=== PATIENT | female | born 1970 | race Caucasian/White ===

== ENCOUNTER → 2018-08-18 11:01 | Outpatient (CLI) | payer OTHER, MEDICAID, SELFPAY ==
[2018-08-18 12:25] LABS: Add Manual Diff / Slide Review NO; Basophils Percent Auto 0.7 % (0-2); Eosinophils Percent Auto 3.2 % (2-4); Hematocrit 37.6 % (36-46); Lymphocytes Percent Auto 26.4 % (25-40); Mean Corpuscular HGB Conc 34.7 % (30-36); Mean Corpuscular Hemoglobin 27.8 PG (26-34); Monocytes Percent Auto 7.3 % (3-14); Neutrophils Absolute Auto 4200 /uL (3000-5900); Neutrophils Percent Auto 62.4 % (50-75); Platelet Count 308 X10^3/uL (150-400); Red Blood Cell Count 4.69 X10^6/uL (4.0-5.2); Red Cell Distribution Width 14.3 % (11.6-14.8); White Blood Cell Count 6.8 X10^3/uL (4.5-11.0)
[2018-08-18 13:14] LABS: Alanine Aminotransferase 22 IU/L (9-52); Albumin 3.7 g/dL (3.5-5.0); Albumin Globulin Ratio 1.2 (1.0-2.8); Alkaline Phosphatase 68 U/L (38-126); Aspartate Aminotransferase 25 IU/L (14-36); BUN Creatinine Ratio 13.3 (6-22); Bilirubin Total 0.7 mg/dL (0.2-1.3); Blood Urea Nitrogen 12 mg/dL (7-17); Calcium 9.1 mg/dL (8.4-10.2); Carbon Dioxide 25 mmol/L (22-32); Chloride 103 mmol/L (98-107); Estimated Glomerular Filt Rate > 60.0 mL/min (>60); Globulin 3.1 g/dL (1.7-4.1); Glucose 105 mg/dL (70-100); HEMOLYSIS < 15 (0-50); Potassium 4.1 mmol/L (3.4-5.1); Sodium 140 mmol/L (137-145); Total Protein 6.8 g/dL (6.3-8.2)
[2018-08-18 16:02] LABS: Hepatitis B Surface Antigen NEGATIVE s/c (NEGATIVE)
[2018-08-18 16:19] LABS: Hep C Virus Ab w/Reflex Quant NEGATIVE s/c (NEGATIVE)
[2018-08-20 16:31] LABS: Hepatitis A Ab Total Nonreactive (Nonreactive); Hepatitis B Core IgM Nonreactive (Nonreactive)
[2018-08-21 08:35] LABS: Hepatitis B Surf Ab Qualitativ Nonreactive (Nonreactive)
[2018-08-25 10:24] LABS: Rapid Plasma Reagin NON-REACTIVE
== END ==
PROVIDERS: PCP Family Medicine; Visit Provider Family Medicine
DX: Z11.3 Encounter for screening for infections with a predominantly sexual mode of transmission (principal); Z13.228 Encounter for screening for other metabolic disorders
CPT/HCPCS: 36415; 80053; 85025; 86592; 86705; 86706; 86803; 87340

== ENCOUNTER 2020-08-29 19:24 | Emergency (ER) | payer OTHER, MEDICAID, SELFPAY ==
[2020-08-29 19:40] VITALS: BP 175/11; PULSE 78; RESP 19; TEMP 36.6; O2SAT 100; BMI 34.2
--- NOTE | 2020-08-29 19:43 | DI.RAD.S_ITS ---
PROCEDURE: XR KNEE RT 3V INDICATIONS: felt pop in knee, now increased pain in right knee TECHNIQUE: Three views of the knee were acquired. COMPARISON: None. FINDINGS: Bones: No fractures or dislocations. Enthesopathy at the distal quadriceps tendon insertion on the patella. No suspicious bony lesions. Mild spurring in the patellofemoral compartment. Soft tissues: Moderate-sized joint effusion. No suspicious soft tissue calcifications. IMPRESSION: 1. Moderate-sized joint effusion suggest internal derangement. 2. Mild patellofemoral compartment degeneration. Dictated by: Edith Rodriguez M.D. on 08/29/2020 at 20:48 Approved by: Edith Rodriguez M.D. on 08/29/2020 at 20:49
--- NOTE | 2020-08-29 21:20 | PC.NURSE ---
Took 400mg Ibuprofen at 1530. Ice pack applied.
--- NOTE | 2020-08-29 22:00 | DI.CT.S_ITS ---
PROCEDURE: CT LE RT WO CON INDICATIONS: pain/injury TECHNIQUE: Noncontrast 1-1.5 mm axial sections acquired from the mid-patella to the proximal tibia, with coronal and sagittal reformats. COMPARISON: [facility], CR, XR KNEE RT 3V, 08/29/2020, 19:32. FINDINGS: Image quality: Excellent. Bones: Within the distal femoral marrow space there is a structure that shows rounded and curvilinear internal small calcifications measuring up to 2.9 cm craniocaudad and 2.7 x 2.3 cm in maximal AP and transverse dimensions. 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 A small area of vascular groove is seen adjacent to this structure, which does not represent an osteolytic lesion by appearance. Soft tissues: Small to moderate joint effusion, superimposed [id number] degenerative osteoarthritis. IMPRESSION: In the setting of reported trauma or sensation of possible ligament injury the presence of a joint effusion is a worrisome finding, and likely indicates some form of internal derangement. Knee MRI likely is warranted for this finding, and also likely is warranted for establishing baseline for follow-up of a 2.9 cm maximal dimension chondroid matrix tumor within the medullary space of the distal femur, not effectively visualized by plain film. 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 However, low-grade chondrosarcoma could produce this appearance. Note: These findings are concordant with the preliminary interpretation. Dictated by: Jarvis Josue M.D. on 08/30/2020 at 8:14 Approved by: Jarvis Josue M.D. on 08/30/2020 at 8:21
--- NOTE | 2020-08-29 22:01 | ED.LOWEXIN ---
HPI - Extremity Injury (Lower) General Chief Complaint: Extremity Injury, Lower Stated Complaint: right knee pain, heard a pop Time Seen by Provider: 08/29/20 21:51 Source: patient Mode of arrival: Ambulatory Limitations: no limitations History of Present Illness HPI Narrative: Patient tracing her puppy 3 3 this afternoon 7 hours ago and felt a pop in the right knee. One and half weeks ago she fell on her right knee tripping on a pillow at home. Pain since then and worsened today with chasing the puppy. No numbness tingling or weakness. No previous knee injury or surgeries. No numbness tingling weakness. Able to fully flex to 90? and extend fully as well. Boyfriend at bedside and is driving complaint: knee injury Related Data Previous Rx's Medication Instructions Recorded hydrocodone-acetaminophen 1 tab PO Q6H PRN #7 tab 08/29/20 ondansetron 4 mg PO Q8H PRN #10 tab 08/29/20 Allergies Allergy/AdvReac Type Severity Reaction Status Date / Time No Known Drug Allergies Allergy Verified 08/29/20 19:40 Review of Systems Review of Systems Narrative: GENERAL: Denies chills, fatigue, malaise, fever, sweats. MUSCULOSKELETAL: Complains joint pain, or bony pain SKIN: Denies rash, skin lesions NEUROLOGIC: Denies weakness, no numbness tingling PSYCHIATRIC: No concerning psychosocial issues. ROS Unobtainable: All systems reviewed & are unremarkable except as noted in HPI and below Patient History Social History Smoking Status: Current every day smoker Smoking Status: Current every day smoker Substance Use Type: marijuana Exam Narrative Exam Narrative: GENERAL: patient appears stated age. Well-nourished, well-developed patient, in no distress, not toxic HEAD: Atraumatic. Normocephalic. CARDIOVASCULAR: Regular rate and rhythm without murmurs, gallops, or rubs. RESPIRATORY: Clear to auscultation. Breath sounds equal bilaterally. No wheezes, rales, or rhonchi. EXTREMITIES: Examination right lower extremity need to toes exposed. Leg and foot warm soft and pink with strong pedal pulse with light touch intact to foot and toes. Nontender ankle. Mild diffuse tenderness and edema at the anterior right knee. Able to fully extend and able to flex to 90? actively. There is no laxity but does have pain of the right knee on anterior posterior medial and lateral and rotational stress of the right leg. NEURO: AOx4. SKIN: No rash or erythema of visible areas PSYCH: Not anxious, is cooperative Initial Vital Signs Initial Vital Signs: Vital Signs Temperature 97.8 F 08/29/20 19:40 Pulse Rate 78 08/29/20 19:40 Respiratory Rate 19 08/29/20 19:40 Blood Pressure 175/11 H 08/29/20 19:40 Pulse Oximetry 100 08/29/20 19:40 Course Orders Ordered: ED Orders 08/29/20 19:43 XR knee RT 3V Stat 08/29/20 22:00 CT LE RT wo con Stat Discontinued Medications Hydromorphone HCl (Dilaudid) 1 mg IM NOW ONE Stop: 08/29/20 21:59 Last Admin: 08/29/20 22:38 Dose: 1 mg Documented by: JOSELITO Ondansetron HCl (Zofran Odt) 4 mg SL NOW ONE Stop: 08/29/20 21:59 Last Admin: 08/29/20 22:37 Dose: 4 mg Documented by: JOSELITO Reevaluation(s) Reevaluation #1: Patient states pain much better and desires discharge home. Reviewed imaging results with patient and boyfriend. Time: 23:38 Vital Signs Vital signs: Vital Signs - 8 hr 08/29/20 19:40 08/29/20 23:54 Temperature 97.8 F Pulse Rate 78 79 Respiratory Rate 19 14 Blood Pressure 175/11 H 146/94 H Pulse Oximetry 100 100 MDM - Extremity Injury (Lower) Differential Diagnosis Differential diagnosis: Likely acute internal derangement of knee Imaging Data X-ray right knee: Radiologist's Impression: [address] [address] XRay Report Signed Patient: Joceline Lemus LMR#: [id number] : 1970Acct:[id number] Age/Sex: 50 / FDate of Service: 08/29/20 Loc: ED Accession Number: [id number] Procedure: XR knee RT 3V Ordering Provider: Mio Cavanaugh MD PROCEDURE: XR KNEE RT 3V INDICATIONS: felt pop in knee, now increased pain in right knee TECHNIQUE: Three views of the knee were acquired. COMPARISON: None. FINDINGS: Bones: No fractures or dislocations. Enthesopathy at the distal quadriceps tendon insertion on the patella. No suspicious bony lesions. Mild spurring in the patellofemoral compartment. Soft tissues: Moderate-sized joint effusion. No suspicious soft tissue calcifications. IMPRESSION: 1. Moderate-sized joint effusion suggest internal derangement. 2. Mild patellofemoral compartment degeneration. Dictated by: Edith Rodriguez M.D. on 08/29/2020 at 20:48 Approved by: Edith Rodriguez M.D. on 08/29/2020 at 20:49 CT scan right knee without contrast: Radiologist's Impression: No acute osseous process. Small suprapatellar joint effusion. MDM Narrative Medical decision making narrative: Appropriate for discharge home and follow-up. Will need outpatient MRI Discharge Plan Departure Patient Disposition: Home Clinical Impression: Right knee sprain Qualifiers: Encounter type: initial encounter Involved ligament of knee: unspecified ligament Qualified Code(s): S83.91XA - Sprain of unspecified site of right knee, initial encounter Discharge Date/Time: 08/29/20 23:55 Instructions: How to Use Crutches, DI for Knee Sprain Activity Restrictions/Additional Instructions: No driving or operating machinery until evaluated by Orthopedics. Use crutches and knee immobilizer when ambulating. Called provided orthopedic office in the morning for office recheck next week. May need to scheduled for outpatient MRI of your knee. Return if worse or if any questions or concerns. Prescriptions: New hydrocodone-acetaminophen 5-325 mg tablet 1 tab PO Q6H PRN (Reason: pain) Qty: 7 RF: 0 ondansetron 4 mg tablet,disintegrating 4 mg PO Q8H PRN (Reason: nausea and vomiting) Qty: 10 RF: 0 Referrals: Bryce Hatch MD [Physician] - Taras Crews MD [Primary Care Provider] -
[2020-08-29] MEDS: ONDANSETRON 4 MG ODT SL (22:37)
[2020-08-29] MEDS: HYDROMORPHONE 1 MG INJ IM (22:38)
[2020-08-29 23:54] VITALS: BP 146/94; PULSE 79; RESP 14; O2SAT 100
== END 2020-08-29 23:55 | disposition home or self-care (01) ==
PROVIDERS: Emergency Provider Emergency Medicine; PCP Family Medicine
DX: S83.91XA Sprain of unspecified site of right knee, initial encounter (principal)
CPT/HCPCS: 73562; 73700; 96372; 99284; J1170

== ENCOUNTER → 2020-09-23 12:28 | Outpatient (CLI) | payer OTHER, MEDICAID, SELFPAY ==
--- NOTE | 2020-09-23 | DI.MRI.S_ITS ---
PROCEDURE: MR LUMBAR SPINE WO CON INDICATIONS: Spondylolisthesis derangement. Low back pain TECHNIQUE: Noncontrast sagittal T1 spin echo and T2 fast echo, sagittal STIR, axial T1 and T2 fast spin echo through the lumbar spine. In cases with scoliosis, additional coronal T2 fast spin echo may be performed. COMPARISON: [facility] [place], CR, XR LUMBAR SPINE 2 OR 3 VIEWS, 09/12/2020, 13:40. FINDINGS: Image quality: Partially degraded by motion artifact. Alignment and Curvature: 5 lumbar type vertebral bodies are present by plain film. Mild grade 1 retrolisthesis of L1 on L2, L2 on L3, L3 on L4, and L5 on S1. Mild grade 1 anterolisthesis of L4 on L5. Bone Marrow: Marrow is of normal overall signal. No acute vertebral body compression fractures. Mild reactive signal within the endplates adjacent to the T12-L1, L1-L2, L2-L3, L3-L4, L4-L5, and L5-S1 intervertebral discs. Spinal Cord: Conus medullaris terminates at the lower L1 level. Visualized cord demonstrates normal signal and size. Paraspinous Soft Tissues: No paravertebral masses. L1-L2: Moderate disc height loss and desiccation. Mild diffuse disc bulge. Mild facet and ligamentum flavum hypertrophy. Mild canal stenosis. Mild bilateral foraminal stenosis. L2-L3: Moderate disc height loss and desiccation. Mild diffuse disc bulge. Mild facet and ligamentum flavum hypertrophy. Mild epidural lipomatosis. Moderate canal stenosis. Mild bilateral foraminal stenosis. L3-L4: Moderate disc desiccation. Mild disc height loss and diffuse disc bulge. Mild facet and ligamentum flavum hypertrophy. Mild epidural lipomatosis. Mild canal stenosis. Mild bilateral foraminal stenosis. L4-L5: Moderate disc height loss and desiccation. Mild diffuse disc bulge. Moderate bilateral facet and ligamentum flavum hypertrophy. Severe canal stenosis. Moderate subarticular foraminal stenosis bilaterally. L5-S1: Moderate disc height loss and desiccation. Mild diffuse disc bulge with superimposed broad-based left posterolateral protrusion. Mild facet and ligamentum flavum hypertrophy. Moderate canal stenosis. Severe left and mild right foraminal stenosis. Left L5 nerve root compression. IMPRESSION: 1. Multilevel degenerative disc and facet disease, as well as ligamentum flavum hypertrophy and epidural lipomatosis. 2. Multilevel canal stenosis, worst at L4-L5, where there is severe canal stenosis. Moderate canal stenosis at L2-L3 and L5-S1. 3. Multilevel foraminal stenoses, worst at L5-S1 on the left where there is associated intraforaminal nerve root compression. Recommend correlation with clinical symptoms to ascertain relevance of this finding. Dictated by: Rosario Huff M.D. on 09/23/2020 at 14:43 Approved by: Rosario Huff M.D. on 09/23/2020 at 14:46
--- NOTE | 2020-09-23 | DI.MRI.S_ITS ---
PROCEDURE: MR KNEE RT WO CON INDICATIONS: Right knee pain TECHNIQUE: Noncontrast sagittal PD fast spin echo and T2 fast spin echo with fat saturation, sagittal 3-D FLASH with fat saturation; coronal T1 spin echo and PD fast spin echo with fat saturation, and axial PD fast spin echo with fat saturation through the knee. COMPARISON: [facility], CR, XR KNEE RT 3V, 08/29/2020, 19:32. FINDINGS: Image quality: Partially degraded by motion artifact. Menisci: Medial extrusion of the medial meniscus. Moderately displaced radial tearing of the posterior horn medial meniscus at the meniscal root ligament insertion site. The radial tearing of the posterior horn medial meniscus. Amorphous and linear high signal intensity within the medial meniscal body, demonstrating inferior articular surface extension, indicating complex tearing. Lateral meniscus is intact. Cruciate ligaments: The anterior and posterior cruciate ligaments appear intact. Medial structures: The medial collateral ligament appears intact but demonstrates mild surrounding T2 signal elevation. Visualized portions of the pes anserinus tendons appear normal. Small amount of medial bursal fluid. Lateral structures: The lateral collateral ligament demonstrates mild T2 signal elevation at the femoral origin. long and short heads of the biceps femoris tendon appear intact. The popliteus tendon appears normal. Iliotibial band appears normal. Anterior structures: The quadriceps and patellar tendons appear intact. Patellar alignment is normal. No femoral trochlear dysplasia or ventral trochlear prominence. Moderate edema in the central and superolateral infrapatellar fat pad. Bones and cartilage: No bone marrow contusions or fractures. Within the central aspect of the distal femur posteriorly adjacent to the intercondylar notch, there is a well-circumscribed high T2 intensity focus measuring 32 mm, which demonstrates multiple internal punctate low T2 intensity foci. Mild tricompartmental periarticular osteophyte formation. Mild diffuse articular cartilage loss overlies the weight-bearing aspects of the medial femoral condyle and medial tibial plateau. Moderate to severe articular cartilage loss overlies the lateral patellar facet inferiorly. Joint space: There is a moderate knee joint effusion and a moderate Robertson's cyst. Normal appearing synovial plicae are incidentally noted. IMPRESSION: 1. Tricompartmental osteoarthritis with associated articular cartilage loss. 2. Medial meniscal tear. 3. Findings consistent with lateral patellofemoral friction syndrome in the appropriate clinical setting. 4. Knee joint effusion and Roberston's cyst. 5. Medial bursitis. 6. MCL strain. 7. Low-grade partial thickness lateral collateral ligament tear. Dictated by: Rosario Huff M.D. on 09/23/2020 at 14:48 Approved by: Rosario Huff M.D. on 09/23/2020 at 14:51
== END ==
PROVIDERS: Referring Provider Orthopaedic Surgery Orthopaedic Surgery of the Spine; Visit Provider Orthopaedic Surgery Orthopaedic Surgery of the Spine
DX: M43.16 Spondylolisthesis, lumbar region (principal); M23.91 Unspecified internal derangement of right knee; M51.36 Other intervertebral disc degeneration, lumbar region; M51.37 Other intervertebral disc degeneration, lumbosacral region; M48.061 Spinal stenosis, lumbar region without neurogenic claudication; M48.07 Spinal stenosis, lumbosacral region; M17.11 Unilateral primary osteoarthritis, right knee; S83.241A Other tear of medial meniscus, current injury, right knee, initial encounter; S83.411A Sprain of medial collateral ligament of right knee, initial encounter; S83.421A Sprain of lateral collateral ligament of right knee, initial encounter; M25.461 Effusion, right knee; M71.21 Synovial cyst of popliteal space [Baker], right knee; M71.561 Other bursitis, not elsewhere classified, right knee; E88.2 Lipomatosis, not elsewhere classified
CPT/HCPCS: 72148; 73721

== ENCOUNTER → 2020-11-18 17:18 | Outpatient (CLI) | payer OTHER, MEDICAID, SELFPAY ==
--- NOTE | 2020-11-18 17:21 | DI.MRI.S_ITS ---
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 Post-contrast axial, coronal, and sagittal T1 spin echo with fat saturation through the knee. COMPARISON: [facility], CR, XR KNEE RT 3V, 08/29/2020, 19:32. [facility], CR, KNEE 3VW (LT), 11/16/2014, 21:03. [facility], CT, CT LE RT WO CON, 08/29/2020, 22:25. [facility], MR, MR KNEE RT WO CON, 09/23/2020, 13:11. FINDINGS: Image quality: Excellent. No fracture. There is redemonstration of the large T2 hyperintense distal right femoral metaphyseal lesion, which abuts the posterior cortex and measures approximately 3.1 x 2.7 cm in cross-sectional mention on axial image 11/03. There is minimal if any internal enhancement. Mild peripheral enhancement pattern is noted on the sagittal pulse sequence. There is stippled internal appearance of the matrix, with scattered T2 hypointense calcific foci, raising possibility of chondroid matrix. No adjacent marrow edema is seen. However, there is thinning of the posterior cortex of the distal femur. No definite soft tissue component is seen. Additional findings as detailed on the noncontrast MRI knee dated 09/23/20, including large Robertson's cyst. Nonspecific subcentimeter T2 hyperintense foci with peripheral enhancement near the tibial spine could represent additional small chondroid lesions, versus degenerative cysts. IMPRESSION: Redemonstrated T2 hyperintense, minimally enhancing distal right femoral metaphyseal lesion. 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 Especially, if there is clinical history of pain in this area. Recommend clinical correlation and oncologic surgical consultation/management Dictated by: Jonathan Neil M.D. on 11/19/2020 at 9:17 Approved by: Jonathan Neil M.D. on 11/19/2020 at 9:30
== END ==
PROVIDERS: Referring Provider Physician Assistant Medical; Visit Provider Physician Assistant Medical
DX: D16.21 Benign neoplasm of long bones of right lower limb (principal)
CPT/HCPCS: 73723; A9579

== ENCOUNTER → 2021-01-21 18:38 | Outpatient (CLI) | payer OTHER, MEDICAID, SELFPAY ==
[2021-01-21 19:29] LABS: COVID19 -Nasal RAPID Negative (Negative)
== END ==
PROVIDERS: PCP Family Medicine; Visit Provider Physician Assistant
DX: Z20.822 Contact with and (suspected) exposure to COVID-19 (principal)
CPT/HCPCS: 87635

== ENCOUNTER 2021-01-22 13:03 | Day surgery (SDC) | payer OTHER, MEDICAID, SELFPAY ==
[2021-01-22] VITALS (11 sets, daily range): BP systolic 136–165; BP diastolic 66–111; PULSE 71–85; RESP 10–99; TEMP 36.2–36.7; O2SAT 12–100; BMI 34.2
[2021-01-22] MEDS: LACTATED RINGERS 1,000 ML 42 ML IV (13:53)
--- NOTE | 2021-01-22 14:03 | PM.HP.1 ---
History of Present Illness History of Present Illness Date Patient Seen: 01/22/21 Time Patient Seen: 14:03 Chief complaint: RIGHT KNEE ARTHROSCOPY W/MENISECTOMY Narrative: Patient is a 50-year-old female with a longstanding history of right knee pain. Jacquelin is seen in September of 2020 at which time an MRI was ordered which did demonstrate a medial meniscus tear but she also incidentally was found to have a cartilaginous lesion within the distal aspect of her femur. This was concerning for enchondroma versus chondrosarcoma. She was subsequently sent to the [facility] for oncology referral they are currently planning on doing 6 month surveillance. He received [facility] states that it is okay to proceed with a right knee arthroscopy were for partial mid medial meniscectomy as long as we do not violate tumor itself. Patient History Medical History (Updated 01/20/21 @ 11:59 by Kasie Emerson RN) Complex tear of medial meniscus of right knee as current injury Family & Social History Tobacco & Substance use: Tobacco type cannabis/marijuana Smoking Status Current every day smoker Substance Use Type marijuana Meds Home Medications and Allergies Allergies Allergy/AdvReac Type Severity Reaction Status Date / Time No Known Drug Allergies Allergy Verified 01/21/21 18:37 Review of Systems Review of Systems ROS: Yes All systems reviewed with the patient and are negative except as otherwise documented Exam Narrative Exam Narrative: Tenderness to palpation over the medial aspect of the knee. Apley's grind test is positive. Bounce test is positive. Minimal lateral joint line tenderness to palpation. Range of motion from full extension to 130? of flexion. Knee stable to varus valgus stress at full extension. Trace effusion. Assessment & Plan Assessment & Plan narrative: Patient is a 50-year-old female with longstanding history of right medial-sided knee pain. She has an MRI which demonstrates a medial meniscus tear she also was found to have an incidental cartilaginous lesion in her femur. She is being seen by oncology nurse to [place] for this lesion. Plan is for right knee arthroscopy with partial medial meniscectomy. The risks and benefits of surgery were discussed the patient including the risk of infection incomplete relief of symptoms need for future surgeries, etc.. Patient demonstrates understanding the risks and benefits and wished with a right knee arthroscopy with partial medial meniscectomy Time Spent With Patient Time with patient: 15-24 minutes
--- NOTE | 2021-01-22 14:32 | SUR.PREOP ---
unable to obtain IV access after 4 attempts. Patient states she is always a diffcult IV stick. Anesthesia aware.
[2021-01-22] MEDS: CEFAZOLIN 2 GM/100 ML FROZ.PIGGY IV (15:15)
[2021-01-22] MEDS: BUPIVACAINE 0.5% W/ EPI (PF) 30 ML VIAL INJ (15:32)
--- NOTE | 2021-01-22 15:33 | SUR.OPER ---
Supine on padded OR bed, head on pillow, arms secured on padded arm boards at <90 degrees abduction, legs uncrossed, safety belt at lower torso, tape over blanket over left lower leg. Lateral brace at right thigh under sterile drapes. right leg/operative leg in control of the surgeon. Left calf SCD not in use due to IV placement in left foot.
--- NOTE | 2021-01-22 15:49 | PM.OP.1 ---
Operative Date/Time/Diagnoses Date of procedure: 01/22/21 Time of procedure: 15:49 Pre-op diagnosis: right knee medial meniscus tear Post-op diagnosis: same Procedure & Clinicians Procedure: Right knee arthroscopy with partial medial meniscectomy Same procedure as scheduled: Yes Indications: Right knee medial meniscus tear resistant to conservative measures. Click Yes if Unassisted: Yes Anesthesia Type: General Operative Notes Findings: Suprapatellar pouch clear of any adhesions no plica band. Patellofemoral joint demonstrated grade 2 chondromalacia of the patella and grade 3 chondromalacia of the trochlea Lateral gutter clear Medial gutter clear Intercondylar notch intact ACL and PCL although ACL does look diminished in caliber Medial joint with a medial meniscus tear as well as grade 3/4 chondromalacia of the femoral condyle Lateral joint with synovial strands no significant chondromalacia of the femoral or tibial articular surface. Intact lateral meniscus Closure Type: primary Estimated Blood Loss (mL): 50 Tourniquet time (min): 15 Procedure in detail: Patient was seen in the preoperative holding area. Informed consent was reviewed the preoperative holding area including the risks and benefits of surgery thorough review of the wrist was performed. Patient demonstrates understanding the risks and benefits and wishes to proceed with a right knee arthroscopy with partial medial meniscectomy. Patient was brought back the operating room where she is induced under general anesthesia a IV was then placed in her contralateral foot as we were unable to obtain IV access in her upper extremities. A surgical time-out was performed verifying site and side surgery will then the patient. A Esmarch was then used to exsanguinate the right lower extremity the tourniquet was inflated 250 mm of mercury. Local anesthetic was then injected into the soft tissues over the anterolateral and anteromedial portal sites. A 11 blade was used make a rent in the skin over the anterolateral portal site a blunt trocar was then introduced into the knee and a camera was then introduced with inflow portal. A diagnostic knee arthroscopy was performed in usual fashion with the findings as given above. Next a spinal needle was then placed through the anteromedial portal to verify trajectory. A 11 blade was then used to make a incision through skin and a blunt trocar was then placed. This was then removed and a hook probe was introduced in to the knee and the medial meniscus was thoroughly interrogated. There was some tearing in the posterior aspect of the medial meniscus as well as a bit of loose flap. There was cartilage flaps on the femoral condyle which were unstable. A arthroscopic shaver was introduced in the knee and the meniscus was contoured back to a stable border and the chondral flaps on the femoral condyle were shaved back to a stable border as well. The probe was then reintroduced in the knee and the medial meniscus was re-irrigated without any further evidence of instability of the meniscus. This was were then removed the knee as well as the camera. Local anesthetic was infiltrated into the knee itself. And the portal sites were closed with 3-0 nylons. Sterile dressings were then placed and the tourniquet was let down at 15 minutes of time. Complications: none Post-operative Condition: stable Disposition: same day surgery Plan for aftercare: DC home when stable from PACU. Avoid deep twisting of the knee. WBAT RLE. elevate and ice as needed. OK to remove dressings in 3 days nd shower. No baths.
[2021-01-22] MEDS: fentaNYL 100 MCG/2 ML INJ IV ×2 (16:07→16:20)
[2021-01-22] MEDS: OXYCODONE IR 5 MG TABLET PO (16:10)
[2021-01-22] MEDS: OXYCODONE/ACETAMINOPHEN 5/325 TABLET 1 TAB PO (17:15)
== END 2021-01-22 17:24 | disposition home or self-care (01) ==
PROVIDERS: Referring Provider Orthopaedic Surgery Adult Reconstructive Orthopaedic Surgery; Visit Provider Orthopaedic Surgery Adult Reconstructive Orthopaedic Surgery
PROC: (CPT 29870; principal; 2021-01-22 13:30)
DX: S83.231A Complex tear of medial meniscus, current injury, right knee, initial encounter (principal); J44.9 Chronic obstructive pulmonary disease, unspecified; I10 Essential (primary) hypertension; F17.210 Nicotine dependence, cigarettes, uncomplicated; M94.261 Chondromalacia, right knee
CPT/HCPCS: 29881; J0690; J1100; J1885; J2405; J2704; J3010

== ENCOUNTER 2021-01-24 16:28 | Emergency (ER) | payer OTHER, MEDICAID, SELFPAY ==
[2021-01-24] VITALS (17 sets, daily range): BP systolic 132–196; BP diastolic 80–119; PULSE 79–94; RESP 18–24; TEMP 36.8; O2SAT 97–100
[2021-01-24] MEDS: HYDROMORPHONE 1 MG INJ IM ×2 (16:58→19:02)
--- NOTE | 2021-01-24 17:04 | PC.NURSE ---
sp meniscus repair on right knee 3/3. Last night started having increased pain / discomfort w/ increased swelling. Has not been icing because it hurts to much to ice. Swelling is 3/4. Skin is warm to the touch but no focally red areas.
[2021-01-24 18:38] LABS: Add Manual Diff / Slide Review NO; Basophils Absolute Auto 100 /uL (0-100); Basophils Percent Auto 0.6 % (0-2); Eosinophils Absolute Auto 200 /uL (0-450); Eosinophils Percent Auto 1.6 % (2-4); Hemoglobin 13.2 g/dL (12.0-16.0); Lymphocytes Absolute Auto 3500 /uL (1100-4500); Lymphocytes Percent Auto 30.7 % (25-40); Mean Corpuscular HGB Conc 33.7 % (30-36); Mean Corpuscular Hemoglobin 26.9 PG (26-34); Mean Corpuscular Volume 79.6 fL (80-100); Monocytes Absolute Auto 1000 /uL (0-900); Monocytes Percent Auto 9.2 % (3-14); Neutrophils Absolute Auto 6600 /uL (1500-7000); Neutrophils Percent Auto 57.9 % (50-75); Platelet Count 320 X10^3/uL (150-400); Red Cell Distribution Width 14.5 % (11.6-14.8); White Blood Cell Count 11.4 X10^3/uL (4.5-11.0)
--- NOTE | 2021-01-24 18:42 | ED.LOWEXIN ---
HPI - Extremity Injury (Lower) General Chief Complaint: Extremity Injury, Lower Stated Complaint: KNEE IS WORSE RED HOT Time Seen by Provider: 01/24/21 18:42 Source: patient and family Mode of arrival: Wheelchair Limitations: no limitations History of Present Illness HPI Narrative: 50-year-old female comes emergency department with complaint of right knee pain 2 days status post meniscal repair with Dr. Whitfield. Patient states that she has had increasing pain since she walked for the 1st time last night. She states that her foot feels a little bit numb in the past 2 hours. She has been sitting with her legs slightly down words. She denies fevers. She denies any other systemic symptoms. She states that she has significant increased pain with movement of her lower extremity. She has not appreciated any drainage. She describes some of her pain is being her posterior thigh. Patient states she has been taking Aleve, Tylenol and oxycodone 5 mg. Her last dose of oxycodone was 2 hours ago. She denies any other medical issues. She does have a history of and repair in her low left extremity with steel plates. She denies any allergies to medications. She does use tobacco. Related Data Previous Rx's Medication Instructions Recorded oxycodone 5 mg PO Q6H PRN #10 tab 01/22/21 hydroxyzine pamoate [Vistaril] 25 mg PO TID PRN #20 cap 01/24/21 oxycodone 10 mg PO QID PRN #20 tab 01/24/21 rivaroxaban 15 mg PO BID 21 Days #42 tab 01/24/21 Allergies Allergy/AdvReac Type Severity Reaction Status Date / Time No Known Drug Allergies Allergy Verified 01/21/21 18:37 Review of Systems Review of Systems ROS Unobtainable: All systems reviewed & are unremarkable except as noted in HPI and below Patient History Medical History Complex tear of medial meniscus of right knee as current injury Social History household members: significant other Smoking Status: Current every day smoker Smoking Status: Current every day smoker alcohol intake frequency: holidays/special occasions only Substance Use Type: marijuana Exam Narrative Exam Narrative: GENERAL: Alert and oriented x three, well-nourished female in [id number] distress. HEENT: Head normocephalic, atraumatic, EOMI, pupils reactive, face symmetric, moist mucous membranes NECK: Supple, full range of motion CARDIOVASCULAR: Regular rate and rhythm without murmurs, rubs or gallops. RESPIRATORY: Breath sounds equal bilaterally, no wheezes rales or rhonchi. ABDOMEN: Soft, nontender. Normoactive bowel sounds all 4 quadrants. No guarding or rebound, rigidity, no mass EXTREMITIES: Decreased range of motion the right lower extremity. Patient still has the Betadine wash on her lower extremity making it difficult to assess the color, she has [id number] swelling of her knee in comparison to the opposite. Her incisions are both clean and dry. There is some very slight erythema around the edges. There is no drainage or foul odor. They appear intact. Patient has pain particularly in the posterior thigh, she is nontender in the calf. 2+ dorsalis pedis. She does have sensation to touch. Neurovascularly intact NEUROLOGICAL: Cranial nerves II through XII grossly intact. Moving all extremities SKIN: Warm, dry, no petechiae, no rashes or lesions. Initial Vital Signs Initial Vital Signs: Vital Signs Temperature 98.3 F 01/24/21 16:36 Pulse Rate 91 H 01/24/21 16:36 Respiratory Rate 24 01/24/21 16:36 Blood Pressure 196/98 H 01/24/21 16:36 Pulse Oximetry 100 01/24/21 16:36 Course Orders Ordered: ED Orders 01/24/21 18:30 BMP [Basic Metabolic Panel] Stat Complete Blood Count AUTO DIFF Stat 01/24/21 18:51 US periph venous low extrem rt Stat Discontinued Medications Hydromorphone HCl (Hydromorphone 1 Mg Inj) 1 mg IM NOW ONE Stop: 01/24/21 16:57 Last Admin: 01/24/21 16:58 Dose: 1 mg Documented by: NARESH Hydromorphone HCl (Hydromorphone 1 Mg Inj) 1 mg IM NOW ONE Stop: 01/24/21 18:53 Last Admin: 01/24/21 19:02 Dose: 1 mg Documented by: NARESH Hydromorphone HCl (Hydromorphone 1 Mg Inj) 2 mg IM NOW ONE Stop: 01/24/21 20:54 Last Admin: 01/24/21 20:58 Dose: 2 mg Documented by: YAA Lorazepam (Lorazepam 0.5 Mg Tablet) 0.5 mg PO NOW ONE Stop: 01/24/21 18:52 Last Admin: 01/24/21 19:02 Dose: 0.5 mg Documented by: NARESH Oxycodone HCl (Oxycodone Ir 5 Mg Tablet) 10 mg PO NOW ONE Stop: 01/24/21 20:40 Last Admin: 01/24/21 21:15 Dose: 10 mg Documented by: YAA Rivaroxaban (Rivaroxaban 10 Mg Tablet) 15 mg PO NOW ONE Stop: 01/24/21 20:59 Last Admin: 01/24/21 21:09 Dose: 15 mg Documented by: YAA Reevaluation(s) Time: 21:12 Consultations Consultation #1: Dr. Rickey ferguson, recommends follow up with orthopedic at scheduled appointment and pcp for the blood thinners. Time: 21:12 Vital Signs Vital signs: Vital Signs - 8 hr 01/24/21 18:30 01/24/21 19:00 01/24/21 19:30 Pulse Rate 92 H 80 84 Respiratory Rate 20 Blood Pressure 132/103 H 167/104 H 179/119 H Pulse Oximetry 100 100 100 01/24/21 20:00 01/24/21 20:30 01/24/21 20:31 Pulse Rate 81 79 81 Respiratory Rate Blood Pressure 144/80 H 170/87 H Pulse Oximetry 98 99 98 01/24/21 21:00 01/24/21 21:25 01/24/21 22:01 Pulse Rate 93 H 87 Respiratory Rate 20 18 Blood Pressure 146/98 H Pulse Oximetry 100 99 MDM - Extremity Injury (Lower) Lab Data Attestation: I reviewed the patient's lab results. Result diagrams: 01/24/21 18:30 01/24/21 18:30 Labs: Lab Results 01/24/21 01/24/21 Range/Units 18:30 18:30 WBC 11.4 H (4.5-11.0) X10^3/uL RBC 4.90 (4.0-5.2) X10^6/uL Hgb 13.2 (12.0-16.0) g/dL Hct 39.0 (36-46) % MCV 79.6 L (80-100) fL MCH 26.9 (26-34) PG MCHC 33.7 (30-36) % RDW 14.5 (11.6-14.8) % Plt Count 320 (150-400) X10^3/uL Neut % (Auto) 57.9 (50-75) % Lymph % (Auto) 30.7 (25-40) % [place] % (Auto) 9.2 (3-14) % Eos % (Auto) 1.6 L (2-4) % Baso % (Auto) 0.6 (0-2) % Neut # (Auto) 6600 (2303-7444) /uL Lymph # (Auto) 3500 (1010-3850) /uL [place] # (Auto) 1000 H (0-900) /uL Eos # (Auto) 200 (0-450) /uL Baso # (Auto) 100 (0-100) /uL Sodium 136 L (137-145) mmol/L Potassium 3.3 L (3.4-5.1) mmol/L Chloride 102 (98-107) mmol/L Carbon Dioxide 28 (22-32) mmol/L BUN 22 H (7-17) mg/dL Creatinine 1.11 H (0.52-1.04) mg/dL Estimated GFR 52.0 L (>60) mL/min BUN/Creatinine Ratio 19.8 (6-22) Glucose 95 (70-100) mg/dL Calcium 9.0 (8.4-10.2) mg/dL Imaging Data US - DVT: Radiologist's Impression: [address] [id number] ReportSigned Patient: Joceline Lemus LMR#: [id number]: [id number]:[id number]/Sex: 50 / FDate of Service: 01/24/21Loc: EDAccession Number: [id number] Procedure: US periph venous low extrem rt Ordering Provider: Nallely Deng D.O. PROCEDURE: US PERIPH VENOUS LOW EXTREM RT INDICATIONS: s/p knee surgery, swelling posterior thigh, pain TECHNIQUE: Real-time imaging, as well as color and pulse Doppler interrogation, were performed of the lower extremity deep veins from the inguinal ligament to the popliteal fossa. COMPARISON: None. FINDINGS: Partially occlusive thrombus in the popliteal vein. The greater saphenous vein, common femoral vein, in the deep femoral vein there is no evidence of thrombosis. Complex popliteal fossa fluid collection measuring 4.7 x 5.3 x 5.4 centimeters. IMPRESSION: Short segment partially occlusive DVT in the popliteal vein. Proximal to the popliteal veins of deep veins of the thigh demonstrate no evidence of thrombosis. Complex fluid collection in the popliteal fossa, hematoma versus Robertson's cyst. Dictated by: Kp Moon M.D. on 01/24/2021 at 20:00 Approved by: Kp Moon M.D. 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 Patient states it has increased since yesterday. Particularly with movement. She is also appreciate swelling and some redness. Her incisions do not appear infected. Ultrasound does show a partially occlusive thrombus, fluid collection that can be hematoma versus Robertson cyst. Labs show leukocytosis, hypokalemia and a slight elevation in her creatinine from 2018. Discussed with Dr. Lang with orthopedic surgery. Plan for anticoagulation for DVT follow-up with Orthopedic surgery. Patient was given strict return precautions. Patient did have some difficulty with pain management initially but was improving after the 1st 2 doses of pain medicine and was given 3rd. We increased her oxycodone as well. Patient does not have primary care was given 3 different options for referral but was encouraged to return if she is unable to find primary care to continue her Xarelto. Discharge Plan Departure Patient Disposition: Home Clinical Impression: Deep vein thrombosis (DVT) of popliteal vein Qualifiers: Chronicity: acute Laterality: right Qualified Code(s): I82.431 - Acute embolism and thrombosis of right popliteal vein Instructions: DI for Deep Vein Thrombosis Activity Restrictions/Additional Instructions: Follow up with your orthopedic surgeon for recheck this week. Call for appointment on Wednesday if you do not already have one. Take medication as prescribed. Continue with Tylenol up to a 1000 mg every 8 hours. May also continue to take ibuprofen up to 800 mg every 8 hours. You may increase your oxycodone to 2 tablets every 6 hours as needed for pain. You may also take Vistaril with this medication every 8 hours as needed. You imaging today shows a DVT blood clot. You will need to take anticoagulation. Take Xarelto 1 tablet (15mg) every 12 hours x3 weeks, then your dose will change to 20 mg once daily. You will need to follow-up with her primary care physician to adjust this medication. Call for an appointment. Prescriptions sent to [facility] in [place]. If the prescription for the blood thinner is too expensive or they do not have it available have the pharmacist call us and we can adjust the medication over the phone tomorrow. It is very important that she take this medication to prevent blood clots from getting larger or moving elsewhere in your body such as your lungs. If you do not have a primary care physician [facility], [facility] and [facility] medicine are all options for follow-up. Return to the ER for fevers, rapidly worsening pain, new chest pain shortness of breath, passing out, persistent vomiting other new or concerning symptoms. Prescriptions: New rivaroxaban 15 mg tablet 15 mg PO BID 21 Days Qty: 42 RF: 0 hydroxyzine pamoate [Vistaril] 25 mg capsule 25 mg PO TID PRN (Reason: muscle spasm) Qty: 20 RF: 0 oxycodone 10 mg tablet 10 mg PO QID PRN (Reason: pain) Qty: 20 RF: 0 No Action oxycodone 5 mg tablet 5 mg PO Q6H PRN (Reason: pain) Qty: 10 RF: 0 Referrals: Michael Whitfield MD [Physician] -
[2021-01-24 18:47] LABS: BUN Creatinine Ratio 19.8 (6-22); Blood Urea Nitrogen 22 mg/dL (7-17); Carbon Dioxide 28 mmol/L (22-32); Chloride 102 mmol/L (98-107); Glucose 95 mg/dL (70-100); HEMOLYSIS < 15 (0-50); Potassium 3.3 mmol/L (3.4-5.1); Sodium 136 mmol/L (137-145)
--- NOTE | 2021-01-24 18:51 | DI.US.S_ITS ---
PROCEDURE: US PERIPH VENOUS LOW EXTREM RT INDICATIONS: s/p knee surgery, swelling posterior thigh, pain TECHNIQUE: Real-time imaging, as well as color and pulse Doppler interrogation, were performed of the lower extremity deep veins from the inguinal ligament to the popliteal fossa. COMPARISON: None. FINDINGS: Partially occlusive thrombus in the popliteal vein. The greater saphenous vein, common femoral vein, in the deep femoral vein there is no evidence of thrombosis. Complex popliteal fossa fluid collection measuring 4.7 x 5.3 x 5.4 centimeters. IMPRESSION: Short segment partially occlusive DVT in the popliteal vein. Proximal to the popliteal veins of deep veins of the thigh demonstrate no evidence of thrombosis. Complex fluid collection in the popliteal fossa, hematoma versus Robertson's cyst. Dictated by: Kp Moon M.D. on 01/24/2021 at 20:00 Approved by: Kp Moon M.D. on 01/24/2021 at 20:02
[2021-01-24] MEDS: LORazepam 0.5 MG TABLET PO (19:02)
[2021-01-24] MEDS: HYDROMORPHONE 1 MG INJ 2 MG IM (20:58)
[2021-01-24] MEDS: RIVAROXABAN 10 MG TABLET 15 MG PO (21:09)
[2021-01-24] MEDS: OXYCODONE IR 5 MG TABLET 10 MG PO (21:15)
== END 2021-01-24 22:01 | disposition home or self-care (01) ==
PROVIDERS: Emergency Medicine; Emergency Provider Emergency Medicine
DX: I82.431 Acute embolism and thrombosis of right popliteal vein (principal)
CPT/HCPCS: 36415; 80048; 85025; 93971; 96372; 99284; J1170

== ENCOUNTER → 2021-04-26 08:50 | Outpatient (CLI) | payer OTHER, MEDICAID, SELFPAY ==
--- NOTE | 2021-04-26 | DI.MRI.S_ITS ---
PROCEDURE: MR SHOULDER RT WO CON INDICATIONS: Unspecified disorder of synovium and tendon, right TECHNIQUE: Noncontrast oblique coronal T2 fast spin echo with fat saturation, oblique sagittal T1 spin echo and T2 fast spin echo with fat saturation, axial T1 spin echo and T2 fast spin echo with fat saturation through the shoulder. COMPARISON: [facility], CR, XR SHOULDER 2+ VIEWS RIGHT, 04/07/2021, 18:27. FINDINGS: Image quality: Degraded by motion artifact. Rotator cuff: Full-thickness tearing of the entire supraspinatus tendon with medial retraction and atrophy. Full-thickness tearing of the mid/anterior infraspinatus tendon with medial retraction of the infraspinatus. There are intact fibers of posterior infraspinatus tendon which demonstrate moderate grade tearing. There is low-grade partial-thickness tearing of the teres minor tendon at the musculotendinous junction. There is full-thickness tearing of the upper subscapularis tendon at the humeral insertion site extending to the musculotendinous junction. Bones and bursae: Superior subluxation of the humeral head. There is moderate ill-defined T2 signal elevation within the humeral head which demonstrates indentation of his posterolateral aspect. Moderate acromioclavicular joint degeneration. The acromion demonstrates conventional anatomy, without an os acromiale. No pathologic subacromial-subdeltoid or subcoracoid bursal fluid is present. Capsule and soft tissues: Moderate glenohumeral joint effusion. Labrum and biceps tendon are not well seen secondary to motion artifact but are grossly intact. The rotator interval appears normal, without fibrosis. The coracohumeral ligament is normal in thickness. IMPRESSION: 1. Limited examination secondary to motion artifact. 2. Full-thickness tearing of the entire supraspinatus and most of the infraspinatus tendons. Supraspinatus atrophy is present. Full-thickness tearing of the upper subscapularis tendon. 3. Hill-Sachs deformity of the humeral head. 4. Acromioclavicular joint osteoarthritis. Dictated by: Rosario Huff M.D. on 04/28/2021 at 8:46 Approved by: Rosario Huff M.D. on 04/28/2021 at 9:41
== END ==
PROVIDERS: Referring Provider Orthopaedic Surgery; Visit Provider Orthopaedic Surgery
DX: M67.911 Unspecified disorder of synovium and tendon, right shoulder (principal)
CPT/HCPCS: 73221

== ENCOUNTER → 2021-10-03 09:21 | Outpatient (CLI) | payer OTHER, MEDICAID, SELFPAY ==
--- NOTE | 2021-10-03 | DI.MRI.S_ITS ---
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 Post-contrast axial, coronal, and sagittal T1 spin echo with fat saturation through the knee. COMPARISON: [facility], MR, MR KNEE RT WO/W CON, 11/18/2020, 17:27. FINDINGS: Image quality: Excellent. Menisci: peripheral displacement The of medial meniscus bowing medial collateral ligament is again seen with suggestion of subtle oblique tear extending to inferior articular surface. There is no evidence of focal lateral meniscal tear. The meniscal root ligaments appear intact. Cruciate ligaments: The anterior and posterior cruciate ligaments appear intact. Medial structures: The medial collateral ligament appears intact. The posterior oblique ligament, semimembranosus tendon insertions, and oblique popliteal liagment, and meniscocapsular junction appear intact. Visualized portions of the pes anserinus tendons appear normal. No abnormal bursal fluid. Lateral structures: The lateral collateral ligament, long and short heads of the biceps femoris tendon appear intact. The popliteus tendon appears normal; the popliteofibular ligament appears intact. The posterosuperior and anteroinferior popliteomeniscal fascicles appear intact. The arcuate and fabellofibular ligaments appear intact, around the lateral inferior geniculate artery. Iliotibial band appears normal. Anterior structures: The quadriceps and patellar tendons appear intact. Patellar alignment is normal. No femoral trochlear dysplasia or ventral trochlear prominence. No edema in the infrapatellar fat pad. Bones and cartilage: Previously described 3.1 x 2.7 cm heterogeneously T2 hyperintense and T1 hypointense lesion within posterior medullary space of distal right femoral metaphysis abuts the posterior cortex unchanged in size and appearance from prior study. Mild peripheral enhancement is again noted in this lesion. Thinning of posterior cortex is again noted without surrounding edema or significant periosteal reaction. No associated soft tissue component. Previously noted T2 hyperintense lesion within proximal tibia near tibial spine remains unchanged in size and appearance with questionable peripheral enhancement. Moderate tricompartmental osteoarthritis and chondromalacia most prominent involving patellofemoral compartment is again seen. No new intraosseous lesion. No fracture or dislocation. Joint space: There is moderate amount of joint fluid, no gross intra-articular loose body. A popliteal cyst is again seen unchanged from prior study. Normal appearing synovial plicae are incidentally noted. No suspicious soft tissue enhancement. IMPRESSION: 1. Stable 3.1 x 2.7 cm peripherally enhancing heterogeneously T2 hyperintense lesion involving distal right femoral metaphysis unchanged in size and appearance from prior study. There is no surrounding edema or periosteal reaction. No soft tissue component. No evidence of pathologic fracture. 2. Benign-appearing subcortical small T2 hyperintense lesion involving proximal tibia near base of tibial spine likely represent benign process such as degenerative cyst. 3. Mild rate tricompartmental osteoarthritis and chondromalacia most prominent in patellofemoral compartment unchanged from prior study. Moderate joint effusion and popliteal cyst as above unchanged from prior study. No gross intra-articular loose body. 4. Suggestion of subtle oblique tear involving posterior horn of medial meniscus extending to inferior articulating surface. No lateral meniscal tear. 5. Cruciate ligaments are intact. Dictated by: Rehan Arellano M.D. on 10/03/2021 at 12:23 Approved by: Rehan Arellano M.D. on 10/03/2021 at 12:57
== END ==
PROVIDERS: Referring Provider Physician Assistant Medical; Visit Provider Physician Assistant Medical
DX: D16.21 Benign neoplasm of long bones of right lower limb (principal); M17.11 Unilateral primary osteoarthritis, right knee; M22.41 Chondromalacia patellae, right knee; M25.461 Effusion, right knee; M71.21 Synovial cyst of popliteal space [Baker], right knee
CPT/HCPCS: 73723; A9579

== ENCOUNTER 2023-03-02 05:31 | Emergency (ER) | payer OTHER, MEDICAID, SELFPAY ==
[2023-03-02] VITALS (7 sets, daily range): BP systolic 177–187; BP diastolic 93–116; PULSE 75–82; RESP 22; TEMP 36.9; O2SAT 96–99; BMI 35.7
--- NOTE | 2023-03-02 05:44 | ED_ITS ---
HPI - General Adult <Luis Antonio Lord DO - Last Filed: 03/02/23 18:02> General Chief complaint: Abdominal Pain Stated complaint: abd pain Time Seen by Provider: 03/02/23 05:37 Source: patient Mode of arrival: Ambulatory History of Present Illness HPI narrative: Patient is a 53-year-old female who is here for evaluation of upper abdominal discomfort for the past 24 hours. Has had some nausea but no vomiting. No diarrhea. No prior abdominal surgeries. Has not tried anything for the symptoms prior to arrival. Does not radiate anywhere. No fevers. No recent travel. Related Data Previous Rx's Medication Instructions Recorded oxycodone 5 mg tablet 5 mg PO Q6H PRN pain #10 tabs 01/22/21 hydroxyzine pamoate 25 mg capsule 25 mg PO TID PRN muscle spasm #20 01/24/21 (Vistaril) caps oxycodone 10 mg tablet 10 mg PO QID PRN pain #20 tabs 01/24/21 ondansetron 4 mg disintegrating 4 mg PO TID-QID PRN nausea and 03/02/23 tablet vomiting #10 tabs pantoprazole 40 mg tablet,delayed 40 mg PO DAILY #30 tabs 03/02/23 release (Protonix) Allergies Allergy/AdvReac Type Severity Reaction Status Date / Time No Known Drug Allergies Allergy Verified 01/21/21 18:37 Review of Systems <Luis Antonio Lord DO - Last Filed: 03/02/23 18:02> Constitutional Constitutional: Reports system reviewed and no additional complaints, except as documented Gastrointestinal Gastrointestinal: Reports system reviewed and no additional complaints, except as documented Genitourinary Genitourinary: Reports system reviewed and no additional complaints, except as documented Integumentary/Breasts Skin/Breast: Reports system reviewed and no additional complaints, except as documented Neurologic Neurologic: Reports system reviewed and no additional complaints, except as documented Hematologic/Lymphatic On Anticoagulants: No Patient History <DO Diaz Ly Last Filed: 03/02/23 18:02> Medical History Complex tear of medial meniscus of right knee as current injury Social History household members: significant other Smoking Status: Current every day smoker Smoking Status: Current every day smoker alcohol intake frequency: holidays/special occasions only Substance Use Type: marijuana Exam <DO Diaz Ly Last Filed: 03/02/23 18:02> Initial Vital Signs Initial Vital Signs: Vital Signs Pulse Rate 82 03/02/23 05:36 Blood Pressure 187/112 H 03/02/23 05:36 Pulse Oximetry 99 03/02/23 05:36 Oxygen Delivery Method Room Air 03/02/23 05:36 Const General: cooperative, comfortable and No ill appearing HENDE Head: normal to inspection and normocephalic Resp Effort & Inspection: normal respiratory effort Auscultation: clear to auscultation bilaterally Cardio Rate: regular rate Rhythm: regular rhythm GI Inspection: normal to inspection Palpation: soft, No guarding and tender (Upper abdomen) Skin General: no rashes or lesions noted Neuro General: patient alert, patient awake and moves all extremities Extrem General: normal to inspection <Krish Renteria DO - Last Filed: 03/02/23 09:09> Initial Vital Signs Initial Vital Signs: Vital Signs Pulse Rate 82 03/02/23 05:36 Blood Pressure 187/112 H 03/02/23 05:36 Pulse Oximetry 99 03/02/23 05:36 Oxygen Delivery Method Room Air 03/02/23 05:36 Course <DO Diaz Ly Last Filed: 03/02/23 18:02> Orders Ordered: Discontinued Medications Al Hydrox/Mg Hydrox/Simethicone 20 ml/ Lidocaine HCl 15 ml 0 ml PO NOW ONE Stop: 03/02/23 05:45 Last Admin: 03/02/23 06:12 Dose: 35 ml Documented By: BRIANNE Haloperidol (Haloperidol 5 Mg/Ml Vial) 5 mg IV NOW ONE Stop: 03/02/23 06:58 Last Admin: 03/02/23 07:14 Dose: 5 mg Documented By: MAGALI Sodium Chloride (Normal Saline 0.9%) 1,000 mls @ 1,000 mls/hr IV BOLUS ONE Stop: 03/02/23 06:38 Last Infusion: 03/02/23 07:58 Dose: 0 mls/hr Documented By: Admin: 03/02/23 06:13 Dose: 1,000 mls/hr Documented By: BRIANNE Ondansetron HCl (Ondansetron 4 Mg/2 Ml Inj) 4 mg IV NOW ONE Stop: 03/02/23 05:40 Last Admin: 03/02/23 06:13 Dose: 4 mg Documented By: BRIANNE Pantoprazole Sodium (Pantoprazole 40 Mg Vial) 40 mg IV NOW ONE Stop: 03/02/23 05:45 Last Admin: 03/02/23 06:13 Dose: 40 mg Documented By: BRIANNE Vital Signs Vital signs: Vital Signs - 8 hr 03/02/23 05:39 03/02/23 05:36 03/02/23 05:36 Temperature 98.5 F Pulse Rate 82 82 Respiratory Rate 22 Blood Pressure 187/112 H 187/112 H Pulse Oximetry 99 99 Oxygen Delivery Method Room Air Room Air 03/02/23 05:44 03/02/23 06:31 03/02/23 07:16 Temperature Pulse Rate 76 Respiratory Rate Blood Pressure 177/93 H Pulse Oximetry 99 98 Oxygen Delivery Method Room Air 03/02/23 07:30 03/02/23 08:32 03/02/23 08:32 Temperature Pulse Rate 75 78 Respiratory Rate Blood Pressure 180/116 H Pulse Oximetry 96 98 Oxygen Delivery Method Room Air Room Air <Krish Renteria, - Last Filed: 03/02/23 09:09> Orders Ordered: Discontinued Medications Al Hydrox/Mg Hydrox/Simethicone 20 ml/ Lidocaine HCl 15 ml 0 ml PO NOW ONE Stop: 03/02/23 05:45 Last Admin: 03/02/23 06:12 Dose: 35 ml Documented By: BRIANNE Haloperidol (Haloperidol 5 Mg/Ml Vial) 5 mg IV NOW ONE Stop: 03/02/23 06:58 Last Admin: 03/02/23 07:14 Dose: 5 mg Documented By: MAGALI Sodium Chloride (Normal Saline 0.9%) 1,000 mls @ 1,000 mls/hr IV BOLUS ONE Stop: 03/02/23 06:38 Last Infusion: 03/02/23 07:58 Dose: 0 mls/hr Documented By: Admin: 03/02/23 06:13 Dose: 1,000 mls/hr Documented By: BRIANNE Ondansetron HCl (Ondansetron 4 Mg/2 Ml Inj) 4 mg IV NOW ONE Stop: 03/02/23 05:40 Last Admin: 03/02/23 06:13 Dose: 4 mg Documented By: BRIANNE Pantoprazole Sodium (Pantoprazole 40 Mg Vial) 40 mg IV NOW ONE Stop: 03/02/23 05:45 Last Admin: 03/02/23 06:13 Dose: 40 mg Documented By: BRIANNE Vital Signs Vital signs: Vital Signs - 8 hr 03/02/23 05:39 03/02/23 05:36 03/02/23 05:36 Temperature 98.5 F Pulse Rate 82 82 Respiratory Rate 22 Blood Pressure 187/112 H 187/112 H Pulse Oximetry 99 99 Oxygen Delivery Method Room Air Room Air 03/02/23 05:44 03/02/23 06:31 03/02/23 07:16 Temperature Pulse Rate 76 Respiratory Rate Blood Pressure 177/93 H Pulse Oximetry 99 98 Oxygen Delivery Method Room Air 03/02/23 07:30 03/02/23 08:32 03/02/23 08:32 Temperature Pulse Rate 75 78 Respiratory Rate Blood Pressure 180/116 H Pulse Oximetry 96 98 Oxygen Delivery Method Room Air Room Air Medical Decision Making <Luis Antonio Lord DO - Last Filed: 03/02/23 18:02> Lab Data Lab results reviewed: Yes I reviewed the patient's lab results. 03/02/23 05:45 03/02/23 05:45 Labs: Lab Results 03/02/23 03/02/23 Range/Units 05:45 05:45 WBC 12.3 H (4.5-11.0) X10^3/uL RBC 5.94 H (4.0-5.2) X10^6/uL Hgb 15.6 (12.0-16.0) g/dL Hct 45.8 (36-46) % MCV 77.2 L (80-100) fL MCH 26.3 (26-34) PG MCHC 34.1 (30-36) % RDW 15.2 H (11.6-14.8) % Plt Count 280 (150-400) X10^3/uL Neut % (Auto) 88.7 H (50-75) % Lymph % (Auto) 6.4 L (25-40) % [place] % (Auto) 3.6 (3-14) % Eos % (Auto) 1.1 L (2-4) % Baso % (Auto) 0.2 (0-2) % Neut # (Auto) 17742 H (0659-7872) /uL Lymph # (Auto) 800 L (1047-3017) /uL [place] # (Auto) 400 (0-900) /uL Eos # (Auto) 100 (0-450) /uL Baso # (Auto) 0 (0-100) /uL Sodium 138 (137-145) mmol/L Potassium 4.0 (3.4-5.1) mmol/L Chloride 103 (98-107) mmol/L Carbon Dioxide 25 (22-32) mmol/L BUN 20 H (7-17) mg/dL Creatinine 0.83 (0.52-1.04) mg/dL Estimated GFR > 60 (>60) mL/min BUN/Creatinine Ratio 24.1 H (6-22) Glucose 125 H (70-100) mg/dL Calcium 8.8 (8.4-10.2) mg/dL Total Bilirubin 1.1 (0.2-1.3) mg/dL AST 26 (14-36) IU/L ALT 22 (<35) IU/L Alkaline Phosphatase 91 (38-126) U/L Total Protein 8.0 (6.3-8.2) g/dL Albumin 4.0 (3.5-5.0) g/dL Globulin 4.0 (1.7-4.1) g/dL Albumin/Globulin Ratio 1.0 (1.0-2.8) Lipase 57 (23-300) U/L Urine Dip Bedside Urine Glucose Negative Bedside Urine Bilirubin - Negative Bedside Urine Ketone - Negative Urine Specific [place] 1.020 Bedside Urine Occult Blood +++ Bedside Urine pH 6.0 Bedside Urine Protein - Negative Bedside Urine Urobilinogen - Negative Bedside Urine Nitrite - Negative Bedside Urine Leukocytes - Negative Esterase Point of care testing: Urine Dip Bedside Urine Glucose Negative Bedside Urine Bilirubin - Negative Bedside Urine Ketone - Negative Urine Specific [place] 1.020 Bedside Urine Occult Blood +++ Bedside Urine pH 6.0 Bedside Urine Protein - Negative Bedside Urine Urobilinogen - Negative Bedside Urine Nitrite - Negative Bedside Urine Leukocytes - Negative Esterase Imaging Data CT scan - abdomen/pelvis: Radiologist's Impression: No acute finding in the abdomen or pelvis MDM Narrative Medical decision making narrative: Patient's labs are unremarkable. She does not have specific right upper quadrant tenderness. Negative Grant's sign. Lipase is negative. Low suspicion for pancreatitis. CT scan shows no acute intra-abdominal pathology. Only minimal improvement with the Toradol and the GI cocktail. No indication for antibiotics. Will try Haldol to see if this improves her symptoms. Care turned over to Dr. Renteria to follow-up and disposition. <Krish Renteria, DO - Last Filed: 03/02/23 09:09> Lab Data Labs: Lab Results 03/02/23 03/02/23 Range/Units 05:45 05:45 WBC 12.3 H (4.5-11.0) X10^3/uL RBC 5.94 H (4.0-5.2) X10^6/uL Hgb 15.6 (12.0-16.0) g/dL Hct 45.8 (36-46) % MCV 77.2 L (80-100) fL MCH 26.3 (26-34) PG MCHC 34.1 (30-36) % RDW 15.2 H (11.6-14.8) % Plt Count 280 (150-400) X10^3/uL Neut % (Auto) 88.7 H (50-75) % Lymph % (Auto) 6.4 L (25-40) % [place] % (Auto) 3.6 (3-14) % Eos % (Auto) 1.1 L (2-4) % Baso % (Auto) 0.2 (0-2) % Neut # (Auto) 71595 H (7375-6462) /uL Lymph # (Auto) 800 L (8405-9845) /uL [place] # (Auto) 400 (0-900) /uL Eos # (Auto) 100 (0-450) /uL Baso # (Auto) 0 (0-100) /uL Sodium 138 (137-145) mmol/L Potassium 4.0 (3.4-5.1) mmol/L Chloride 103 (98-107) mmol/L Carbon Dioxide 25 (22-32) mmol/L BUN 20 H (7-17) mg/dL Creatinine 0.83 (0.52-1.04) mg/dL Estimated GFR > 60 (>60) mL/min BUN/Creatinine Ratio 24.1 H (6-22) Glucose 125 H (70-100) mg/dL Calcium 8.8 (8.4-10.2) mg/dL Total Bilirubin 1.1 (0.2-1.3) mg/dL AST 26 (14-36) IU/L ALT 22 (<35) IU/L Alkaline Phosphatase 91 (38-126) U/L Total Protein 8.0 (6.3-8.2) g/dL Albumin 4.0 (3.5-5.0) g/dL Globulin 4.0 (1.7-4.1) g/dL Albumin/Globulin Ratio 1.0 (1.0-2.8) Lipase 57 (23-300) U/L Urine Dip Bedside Urine Glucose Negative Bedside Urine Bilirubin - Negative Bedside Urine Ketone - Negative Urine Specific [place] 1.020 Bedside Urine Occult Blood +++ Bedside Urine pH 6.0 Bedside Urine Protein - Negative Bedside Urine Urobilinogen - Negative Bedside Urine Nitrite - Negative Bedside Urine Leukocytes - Negative Esterase Point of care testing: Urine Dip Bedside Urine Glucose Negative Bedside Urine Bilirubin - Negative Bedside Urine Ketone - Negative Urine Specific [place] 1.020 Bedside Urine Occult Blood +++ Bedside Urine pH 6.0 Bedside Urine Protein - Negative Bedside Urine Urobilinogen - Negative Bedside Urine Nitrite - Negative Bedside Urine Leukocytes - Negative Esterase MDM Narrative Medical decision making narrative: Patient's labs are unremarkable. She does not have specific right upper quadrant tenderness. Negative Grant's sign. Lipase is negative. Low suspicio n for pancreatitis. CT scan shows no acute intra-abdominal pathology. Only minimal improvement with the Toradol and the GI cocktail. No indication for antibiotics. Will try Haldol to see if this improves her symptoms. Care turned over to Dr. Renteria to follow-up and disposition. [0700] ([place]) Patient received in sign out from [Pop]. I have reviewed the clinical course and performed an independent history and physical exam. Patient's symptoms improved over duration of stay with above-stated therapies. Patient tolerating orals, pain controlled, patient requesting discharge. No in dication for further evaluation or workup. As noted above labs and imaging demonstrate no significant or critical abnormal findings requiring specific intervention Findings and discharge diagnosis discussed with patient/family followed by verbalization of understanding Return precautions discussed with patient/family whom verbalize understanding of diagnosis and plan Discharge Plan Departure Patient Disposition: Home Clinical Impression: Acute epigastric pain Instructions: DI for Epigastric Pain Activity Restrictions/Additional Instructions: *You have been diagnosed with [abdominal pain] * As we discussed your history and physical exam as well as labs and imaging are very reassuring. There is no evidence of any severe diagnoses that would require a specific or immediate intervention. *What to do: *Please continue to take your regular medications as directed. [x ] New medication prescriptions sent to your pharmacy: [[facility] ] *Please follow up with your primary care provider in 2-3 days, call for an appointment. Let them know you were seen in the Emergency Department and that we ask that you be seen in follow up. We will electronically transmit a record of today's note if your PCP is in our system *Please consider a clear liquid diet for the next 24-48 hours and then slowly advance to regular as tolerated. Also, try to avoid alcohol, nicotine, caffeine, spicy, acidic or fatty foods as this may worsen your symptoms *If you do not have a primary care provider please contact the [facility] Resource line at [phone]. They will ask some questions about your medical history and help get you set up with a doctor in the community. *Return to Emergency Department if you should have any new, worsening or concerning symptoms, such as [fever greater than 101 F, shaking chills, worsening pain, persistent vomiting or other bothersome symptoms] Prescriptions: New pantoprazole [Protonix] 40 mg tablet,delayed release (DR/EC) 40 mg PO DAILY Qty: 30 0RF ondansetron 4 mg tablet,disintegrating 4 mg PO TID-QID PRN (Reason: nausea and vomiting) Qty: 10 0RF No Action oxycodone 5 mg tablet 5 mg PO Q6H PRN (Reason: pain) Qty: 10 0RF hydroxyzine pamoate [Vistaril] 25 mg capsule 25 mg PO TID PRN (Reason: muscle spasm) Qty: 20 0RF oxycodone 10 mg tablet 10 mg PO QID PRN (Reason: pain) Qty: 20 0RF Stand Alone Forms: Patient Portal/API
--- NOTE | 2023-03-02 05:44 | DI.CT.S_ITS ---
PROCEDURE: CT ABDOMEN PELVIS W CON INDICATIONS: Generalized abdominal discomfort with vomiting TECHNIQUE: After the administration of IV contrast, axial sections were acquired from the lung bases to the pubic symphysis. Coronal and sagittal reformats were performed. For radiation dose reduction, the following was used: automated exposure control, adjustment of mA and/or kV according to patient size. COMPARISON: None. FINDINGS: Image quality: Excellent. Lung bases: Unremarkable. Small hiatal hernia Heart: No significant findings. ABDOMEN: Liver: Unremarkable. Gallbladder: Unremarkable. Biliary ducts: Unremarkable. Pancreas: Unremarkable. Spleen: Unremarkable. Adrenal Glands: Unremarkable. Kidneys and Ureters: Unremarkable. Stomach and Bowel: Stomach contains fluid with an air-fluid level. Small bowel loops and colon are normal in caliber. Appendix is normal. There is a moderate amount of stool in colon. Peritoneum: No abnormal intraperitoneal fluid. No free air. Ventral Wall: No hernia. Abdominal Nodes: No retroperitoneal or mesenteric adenopathy by size criteria. Vessels: Aorta and inferior vena cava are normal in size. PELVIS: Pelvic Organs: Unremarkable. Bladder: Bladder wall appears thickened but bladder is not fully distended. Pelvic Nodes: No enlarged lymph nodes. Miscellaneous: No inguinal hernias are seen. Bones: There is grade 1 anterolisthesis of L4 on L5. Degenerative changes in lumbar spine. IMPRESSION: 1. No acute abnormalities in abdomen or pelvis. 2. Normal appendix. 3. Small hiatal hernia. 4. Contracted bladder. There is ith question of bladder thickening. Differential diagnoses artifact versus cystitis. No significant discrepancy with the turbine measurements engineer radiology preliminary report. Dictated by: Zhane Godwin M.D. on 03/02/2023 at 6:58 Approved by: Zhane Godwin M.D. on 03/02/2023 at 8:31
[2023-03-02 05:52] LABS: Add Manual Diff / Slide Review NO; Basophils Absolute Auto 0 /uL (0-100); Basophils Percent Auto 0.2 % (0-2); Eosinophils Absolute Auto 100 /uL (0-450); Eosinophils Percent Auto 1.1 % (2-4); Hematocrit 45.8 % (36-46); Hemoglobin 15.6 g/dL (12.0-16.0); Lymphocytes Absolute Auto 800 /uL (1100-4500); Lymphocytes Percent Auto 6.4 % (25-40); Mean Corpuscular HGB Conc 34.1 % (30-36); Mean Corpuscular Hemoglobin 26.3 PG (26-34); Mean Corpuscular Volume 77.2 fL (80-100); Monocytes Absolute Auto 400 /uL (0-900); Monocytes Percent Auto 3.6 % (3-14); Neutrophils Absolute Auto 10900 /uL (1500-7000); Neutrophils Percent Auto 88.7 % (50-75); Platelet Count 280 X10^3/uL (150-400); Red Blood Cell Count 5.94 X10^6/uL (4.0-5.2); Red Cell Distribution Width 15.2 % (11.6-14.8); White Blood Cell Count 12.3 X10^3/uL (4.5-11.0)
[2023-03-02 06:02] LABS: Alanine Aminotransferase 22 IU/L (<35); Alkaline Phosphatase 91 U/L (38-126); Aspartate Aminotransferase 26 IU/L (14-36); BUN Creatinine Ratio 24.1 (6-22); Bilirubin Total 1.1 mg/dL (0.2-1.3); Blood Urea Nitrogen 20 mg/dL (7-17); Calcium 8.8 mg/dL (8.4-10.2); Carbon Dioxide 25 mmol/L (22-32); Chloride 103 mmol/L (98-107); Estimated Glomerular Filt Rate > 60 mL/min (>60); Glucose 125 mg/dL (70-100); HEMOLYSIS < 15 (0-50); Lipase 57 U/L (23-300); Sodium 138 mmol/L (137-145)
[2023-03-02] MEDS: MAG HYDROX/ALUMINUM/SIMETH SUS 20 ML, LIDOCAINE VISCOUS 2% 15 ML PO (06:12)
[2023-03-02] MEDS: PANTOPRAZOLE 40 MG VIAL IV (06:13)
[2023-03-02] MEDS: ONDANSETRON 4 MG/2 ML INJ IV (06:13)
[2023-03-02] MEDS: SODIUM CHLORIDE 0.9% 1,000 ML 1000 ML IV (06:13)
[2023-03-02] MEDS: HALOPERIDOL 5 MG/ML VIAL IV (07:14)
== END 2023-03-02 08:43 | disposition home or self-care (01) ==
PROVIDERS: Emergency Medicine; Emergency Provider Emergency Medicine
DX: R10.13 Epigastric pain (principal)
CPT/HCPCS: 36415; 74177; 80053; 81003; 83690; 85025; 96374; 96375; 99284; C9113; J1630; J2405; Q9967

== ENCOUNTER 2023-10-27 10:56 | Emergency (ER) | payer OTHER, MEDICAID, SELFPAY ==
[2023-10-27 11:14] VITALS: BP 197/140; PULSE 59; RESP 18; TEMP 36.2; O2SAT 98; BMI 33.4
--- NOTE | 2023-10-27 11:39 | DI.RAD.S_ITS ---
PROCEDURE: XR RIBS RT MIN 3V W CXR 1V INDICATIONS: fall, pain TECHNIQUE: 2 views of the right ribs were acquired, along with a single view chest. COMPARISON: None. FINDINGS: Surgical changes and devices: None. Bones and chest wall: No fractures or dislocations. No suspicious bony lesions. Overlying soft tissues appear unremarkable. Lungs and pleura: No pleural effusions or pneumothorax. Lungs appear clear. Mediastinum: Mediastinal contours appear normal. Heart size is normal. IMPRESSION: No displaced rib fracture or pneumothorax. Dictated by: Page Clinton M.D. on 10/27/2023 at 12:34 Approved by: Page Clinton M.D. on 10/27/2023 at 12:35
[2023-10-27 12:09] VITALS: BP 177/104; PULSE 56; RESP 20; O2SAT 98
--- NOTE | 2023-10-27 12:25 | ED.FALL ---
HPI - Fall <John Singh PA-C - Last Filed: 10/27/23 17:51> General Chief Complaint: Fall Stated Complaint: fall thinks broke ribs Source: patient Mode of arrival: Wheelchair History of Present Illness HPI Narrative: This is a 53-year-old female presents emergency department due to right rib pain after tripping and falling down the stairs earlier this morning. She states that she landed primarily on her right ribs also complaining some left knee and right hand pain. Tetanus up-to-date. Not hit her head or lose consciousness. Related Data Previous Rx's Medication Instructions Recorded oxycodone 5 mg tablet 5 mg PO Q6H PRN pain #10 tabs 01/22/21 hydroxyzine pamoate 25 mg capsule 25 mg PO TID PRN muscle spasm #20 01/24/21 (Vistaril) caps oxycodone 10 mg tablet 10 mg PO QID PRN pain #20 tabs 01/24/21 ondansetron 4 mg disintegrating 4 mg PO TID-QID PRN nausea and 03/02/23 tablet vomiting #10 tabs pantoprazole 40 mg tablet,delayed 40 mg PO DAILY #30 tabs 03/02/23 release (Protonix) Allergies Allergy/AdvReac Type Severity Reaction Status Date / Time No Known Drug Allergies Allergy Verified 10/27/23 11:19 Review of Systems <John Singh PA-C - Last Filed: 10/27/23 17:51> Review of Systems Narrative: GENERAL: Denies chills, fatigue, malaise, fever, sweats. HEENT: Denies sinus pain, ear pain, sore throat, difficulty swallowing, dizziness. RESPIRATORY: Denies dyspnea, cough, wheezing, hemoptysis, sputum. CARDIOVASCULAR: Denies chest pain, palpitations, orthopnea, edema, GASTROINTESTINAL: Denies nausea, vomiting, abdominal pain, diarrhea, constipation, melena. : Denies dysuria, frequency, incontinence, hematuria, urinary retention. MUSCULOSKELETAL: Right rib, right hand, left knee pain, otherwise denies weakness, joint pain, or bony pain SKIN: Denies rash, skin lesions, or other NEUROLOGIC: Denies weakness, headache, numbness, change in speech, confusion, seizures, incoordination. PSYCHIATRIC: No concerning psychosocial issues. 12 point review of systems is negative except for those stated above Patient History <John Singh PA-C - Last Filed: 10/27/23 17:51> Medical History Complex tear of medial meniscus of right knee as current injury Social History household members: significant other Smoking Status: Current every day smoker Smoking Status: Current every day smoker tobacco type: cigarettes alcohol intake frequency: holidays/special occasions only Substance Use Type: marijuana Exam <John Singh PA-C - Last Filed: 10/27/23 17:51> Narrative Exam Narrative: GENERAL: Well-developed patient, in mild distress. HEAD: Atraumatic. Normocephalic. EYES: Pupils equal round and reactive. Extraocular motions intact. No scleral icterus. No injection or drainage. ENT: Nose without bleeding, purulent drainage. Throat without erythema, tonsillar hypertrophy or exudate. Airway patent. NECK: Trachea midline. Non tender CARDIOVASCULAR: Regular rate and rhythm without murmurs, gallops, or rubs. RESPIRATORY: Clear to auscultation. Breath sounds equal bilaterally. No wheezes, rales, or rhonchi. GASTROINTESTINAL: Abdomen soft, non-tender, nondistended. EXTREMITIES: Very mild tenderness palpation to the outer aspect of the right hand as well as left knee. Very superficial abrasions. Also has some tenderness to palpation to the right anterior inferior ribs. No bruising. BACK: Nontender without deformity or crepitance. No flank tenderness. NEURO: AOx3. SKIN: No rash or erythema of visible areas Initial Vital Signs Initial Vital Signs: Vital Signs Temperature 97.1 F L 10/27/23 11:14 Pulse Rate 59 L 10/27/23 11:14 Respiratory Rate 18 10/27/23 11:14 Blood Pressure 197/140 H 10/27/23 11:14 Pulse Oximetry 98 10/27/23 11:14 Oxygen Delivery Method Room Air 10/27/23 11:14 <Krish Renteria DO - Last Filed: 10/28/23 09:02> Initial Vital Signs Initial Vital Signs: Vital Signs Temperature 97.1 F L 10/27/23 11:14 Pulse Rate 59 L 10/27/23 11:14 Respiratory Rate 18 10/27/23 11:14 Blood Pressure 197/140 H 10/27/23 11:14 Pulse Oximetry 98 10/27/23 11:14 Oxygen Delivery Method Room Air 10/27/23 11:14 Course <John Singh PA-C - Last Filed: 10/27/23 17:51> Orders Ordered: ED Orders 10/27/23 11:39 XR ribs RT min 3V w CXR1V Stat Vital Signs Vital signs: Vital Signs - 8 hr 10/27/23 11:14 10/27/23 12:09 10/27/23 13:15 Temperature 97.1 F L Pulse Rate 59 L 56 L 78 Respiratory Rate 18 20 14 Blood Pressure 197/140 H 177/104 H 150/99 H Pulse Oximetry 98 98 100 Oxygen Delivery Method Room Air Room Air Room Air <Krish Renteria DO - Last Filed: 10/28/23 09:02> Orders Ordered: ED Orders 10/27/23 11:39 XR ribs RT min 3V w CXR1V Stat Vital Signs Vital signs: Vital Signs - 8 hr 10/27/23 11:14 10/27/23 12:09 10/27/23 13:15 Temperature 97.1 F L Pulse Rate 59 L 56 L 78 Respiratory Rate 18 20 14 Blood Pressure 197/140 H 177/104 H 150/99 H Pulse Oximetry 98 98 100 Oxygen Delivery Method Room Air Room Air Room Air MDM - Fall <John Singh PA-C - Last Filed: 10/27/23 17:51> Imaging Data Rib XR : Radiologist's Impression: [address] [address] XRay Report Signed Patient: Joceline Lemus MR#: [id number] : 1970 Acct:[id number] Age/Sex: 53 / F Date of Service: 10/27/23 Loc: ED Accession Number: [id number] Procedure: XR ribs RT min 3V w CXR1V Ordering Provider: Krish Renteria D.O. PROCEDURE: XR RIBS RT MIN 3V W CXR 1V INDICATIONS: fall, pain TECHNIQUE: 2 views of the right ribs were acquired, along with a single view chest. COMPARISON: None. FINDINGS: Surgical changes and devices: None. Bones and chest wall: No fractures or dislocations. No suspicious bony lesions. Overlying soft tissues appear unremarkable. Lungs and pleura: No pleural effusions or pneumothorax. Lungs appear clear. Mediastinum: Mediastinal contours appear normal. Heart size is normal. IMPRESSION: No displaced rib fracture or pneumothorax. Dictated by: Page Clinton M.D. on 10/27/2023 at 12:34 Approved by: Page Clinton M.D. on 10/27/2023 at 12:35 MDM Narrative Medical decision making narrative: MDM * differential diagnosis includes but not limited to fracture * Prior records reviewed: Patient was seen here about 7 months ago due to abdominal pain. History of DVT. CT scan unremarkable. * My lab interpretation: None obtained * My imgaing interpretation: Right rib and chest x-ray unremarkable. * Clinical Decision Rules/Scores evaluated: None * Independent discussions with: None ED Course: This is a 53-year-old female presents emergency department complaining of primarily right rib pain after falling. She would not hit her head or lose conscious. Right rib and chest x-ray unremarkable. She did have some superficial abrasions to her right hand. Tetanus is up-to-date. Recommended routine wound care. Declined right hand or left knee x-rays. Shared Decision Making: Discussed plan with the patient who is comfortable with the plan. Social Considerations: None Disposition: Discharged to home Discharge Plan Departure Patient Disposition: Home Clinical Impression: Rib pain on right side Activity Restrictions/Additional Instructions: Thank you for coming to the [facility] Emergency Department today. As we discussed your right rib and chest x-ray was unremarkable. No evidence of any kind of rib fractures or lung injury. Please keep an eye on the small wounds your right hand to make sure that you not become infected. I hope you feel better soon. Please follow up with your primary care provider within a week if your symptoms continue. If you do not have a primary care provider please contact the [facility] Resource line at [phone]. They will ask some questions about your medical history and help you get set up with a provider in the community. Prescriptions: No Action oxycodone 5 mg tablet 5 mg PO Q6H PRN (Reason: pain) Qty: 10 0RF hydroxyzine pamoate [Vistaril] 25 mg capsule 25 mg PO TID PRN (Reason: muscle spasm) Qty: 20 0RF oxycodone 10 mg tablet 10 mg PO QID PRN (Reason: pain) Qty: 20 0RF pantoprazole [Protonix] 40 mg tablet,delayed release (DR/EC) 40 mg PO DAILY Qty: 30 0RF ondansetron 4 mg tablet,disintegrating 4 mg PO TID-QID PRN (Reason: nausea and vomiting) Qty: 10 0RF Stand Alone Forms: Patient Portal/API ED Sign-out <Krish Renteria DO - Last Filed: 10/28/23 09:02> Cosign ED Attending Abbey Attestation: I was immediately available in the department for consultation. Documentation has been reviewed. I agree with assessment and plan.
[2023-10-27 13:15] VITALS: BP 150/99; PULSE 78; RESP 14; O2SAT 100
== END 2023-10-27 13:16 | disposition home or self-care (01) ==
PROVIDERS: Emergency Provider Physician Assistant Medical
DX: R07.81 Pleurodynia (principal); M25.562 Pain in left knee; S60.511A Abrasion of right hand, initial encounter; W10.9XXA Fall (on) (from) unspecified stairs and steps, initial encounter
CPT/HCPCS: 71101; 99281

== ENCOUNTER → 2024-02-21 13:23 | Outpatient (CLI) | payer OTHER, MEDICAID, SELFPAY ==
--- NOTE | 2024-02-21 | DI.MRI.S_ITS ---
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 Post-contrast axial, coronal, and sagittal T1 spin echo with fat saturation through the knee. COMPARISON: [facility], MR, MR KNEE RT WO/W CON, 10/03/2021, 9:27. FINDINGS: Image quality: Excellent. Menisci: Peripheral displacement of medial meniscus bowing medial collateral ligament is seen. Truncated appearance of body and posterior horn of medial meniscus is seen suggestive of chronic complex tear versus prior partial meniscectomy not significantly changed from prior study. The lateral meniscus is intact. The meniscal root ligaments appear intact. Cruciate ligaments: The anterior cruciate ligament is thickened with intrasubstance T2 hyperintense signal particularly near its femoral insertion. The posterior cruciate ligament is intact. Medial structures: The medial collateral ligament appears mildly thickened. Visualized portions of the pes anserinus tendons appear normal. No abnormal bursal fluid. Lateral structures: The lateral collateral ligament is thickened at its femoral insertion. The long and short heads of the biceps femoris tendon appear intact. The popliteus tendon appears normal. Iliotibial band appears normal. Anterior structures: Distal quadriceps tendinosis and partial-thickness tear at its superior patellar insertion is seen. The patellar tendon is intact. Patellar alignment is normal. No femoral trochlear dysplasia or ventral trochlear prominence. No edema in the infrapatellar fat pad. Bones and cartilage: Vmlu-[id number] tricompartmental osteoarthritis and chondromalacia is seen more notably in medial femoral tibial compartment and patellofemoral compartment. Mild edema involving weight-bearing portion of medial femoral condyle is seen without discrete fracture line. Osteochondral injuries are noted involving posterior and lateral aspect of patella. Lobulated and heterogeneously T1 hypointense and T2 hyperintense structure within central medullary space of distal femur just above the level of intercondylar notch and measures up to 3.1 x 3 x 2.9 cm in size. No significant contrast enhancement is noted within this structure. The size and appearance of this structure is unchanged from 2020 study. No surrounding edema or abnormal periosteal reaction. Joint space: There is small knee joint fluid. No Robertson's cyst. Normal appearing synovial plicae are incidentally noted. No suspicious soft tissue enhancement. IMPRESSION: 1. Stable 3.1 x 3 x 2.9 cm benign-appearing intramedullary lesion within distal femur without surrounding marrow edema or abnormal periosteal reaction. Finding most likely represent benign process such as enchondroma. No new intraosseous lesion is seen. 2. 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 3. Suggestion of chronic complex tear versus prior partial meniscectomy in body and posterior horn of medial meniscus. No evidence of lateral meniscal tear. 4. Degenerative changes and intrasubstance partial-thickness tear involving anterior cruciate ligament. No ACL rupture. The PCL is intact. 5. Low-grade MCL and LCL sprain. 6. Distal quadriceps tendinosis and low-grade partial-thickness tear. The patellar tendon is intact. 7. Small joint effusion, no gross loose bodies. Dictated by: Rehan Arellano M.D. on 02/21/2024 at 15:29 Approved by: Rehan Arellano M.D. on 02/21/2024 at 15:36
== END ==
PROVIDERS: Referring Provider Physician Assistant Medical; Visit Provider Physician Assistant Medical
DX: S83.411A Sprain of medial collateral ligament of right knee, initial encounter (principal); S83.421A Sprain of lateral collateral ligament of right knee, initial encounter; S76.111A Strain of right quadriceps muscle, fascia and tendon, initial encounter; D16.21 Benign neoplasm of long bones of right lower limb; M17.11 Unilateral primary osteoarthritis, right knee; M94.261 Chondromalacia, right knee; M25.461 Effusion, right knee
CPT/HCPCS: 73723; A9579

== ENCOUNTER 2024-03-28 00:15 | Emergency (ER) | payer OTHER, MEDICAID, SELFPAY ==
[2024-03-28 00:18] VITALS: BP 189/101; PULSE 88; RESP 22; TEMP 37.1; O2SAT 99; BMI 34.4
--- NOTE | 2024-03-28 00:48 | ED_ITS ---
HPI - General Adult General Chief complaint: Abdominal Pain Stated complaint: ABD PAIN Time Seen by Provider: 03/28/24 00:18 Source: patient Mode of arrival: Wheelchair History of Present Illness HPI narrative: 54-year-old here for crampy started today with the symptoms. Has had some. No fevers. No urinary symptoms. She did have bowel movement today she states did not change her symptoms. Has had no issues with urinating and urinating has not changed that your symptoms. Describes it as a cramping and burning sensation middle her abdomen. Has not the symptoms to. Has had a but no prior surgeries other that. Related Data Previous Rx's Medication Instructions Recorded oxycodone 5 mg tablet 5 mg PO Q6H PRN pain #10 tabs 01/22/21 hydroxyzine pamoate 25 mg capsule 25 mg PO TID PRN muscle spasm #20 01/24/21 (Vistaril) caps oxycodone 10 mg tablet 10 mg PO QID PRN pain #20 tabs 01/24/21 ondansetron 4 mg disintegrating 4 mg PO TID-QID PRN nausea and 03/02/23 tablet vomiting #10 tabs pantoprazole 40 mg tablet,delayed 40 mg PO DAILY #30 tabs 03/02/23 release (Protonix) dicyclomine 20 mg tablet 20 mg PO QID PRN abdominal pain 03/28/24 #16 tabs Allergies Allergy/AdvReac Type Severity Reaction Status Date / Time No Known Drug Allergies Allergy Verified 10/27/23 11:19 Review of Systems Review of Systems Narrative: See HPI Patient History Medical History Complex tear of medial meniscus of right knee as current injury Social History household members: significant other Smoking Status: Current every day smoker Smoking Status: Current every day smoker tobacco type: cigarettes alcohol intake frequency: 0-2 drinks per day Substance Use Type: marijuana Exam Initial Vital Signs Initial Vital Signs: Vital Signs Temperature 98.7 F 03/28/24 00:18 Pulse Rate 88 03/28/24 00:18 Respiratory Rate 22 03/28/24 00:18 Blood Pressure 189/101 H 03/28/24 00:18 Pulse Oximetry 99 03/28/24 00:18 Oxygen Delivery Method Room Air 03/28/24 00:[address] [facility] Head: normal to inspection and normocephalic Resp Effort & Inspection: normal respiratory effort Auscultation: clear to auscultation bilaterally Cardio Rate: regular rate Rhythm: regular rhythm GI Inspection: normal to inspection and non-distended Palpation: soft, No firm, No guarding, No rigid and tender Skin General: no rashes or lesions noted Neuro General: patient alert and patient awake Course Orders Ordered: ED Orders 03/28/24 00:19 Complete Blood Count AUTO DIFF Stat Comprehensive Metabolic Panel Stat Lipase Stat 03/28/24 01:12 CT abdomen pelvis wo con Stat 03/28/24 01:27 Urine Microscopic Stat Discontinued Medications Dicyclomine HCl (Dicyclomine 10 Mg Capsule) 20 mg PO NOW ONE Stop: 03/28/24 02:02 Last Admin: 03/28/24 02:18 Dose: 20 mg Hydromorphone HCl (Hydromorphone 1 Mg Inj) 1 mg IV NOW ONE Stop: 03/28/24 00:22 Hydromorphone HCl (Hydromorphone 1 Mg Inj) 1 mg IM NOW ONE Stop: 03/28/24 00:51 Last Admin: 03/28/24 00:56 Dose: 1 mg Documented By: BRIAN Sodium Chloride (Normal Saline 0.9%) 1,000 mls @ 1,000 mls/hr IV BOLUS ONE Stop: 03/28/24 01:17 Ketorolac Tromethamine (Ketorolac 30 Mg/Ml Vial) 30 mg IV NOW ONE Stop: 03/28/24 00:19 Last Admin: 03/28/24 01:53 Dose: 30 mg Documented By: BRIAN Ketorolac Tromethamine (Ketorolac 30 Mg/Ml Vial) 30 mg IM NOW ONE Stop: 03/28/24 01:13 Lactulose (Lactulose 20 Gm/30 Ml Solution) 20 gm PO NOW ONE Stop: 03/28/24 02:02 Last Admin: 03/28/24 02:18 Dose: 20 gm Ondansetron HCl (Ondansetron 4 Mg/2 Ml Inj) 4 mg IV NOW ONE Stop: 03/28/24 00:20 Ondansetron HCl (Ondansetron 4 Mg Odt Prepack) 1 bottle MISC DIRECTED ONE Stop: 03/28/24 02:03 Last Admin: 03/28/24 02:22 Dose: 1 bottle Vital Signs Vital signs: Vital Signs - 8 hr 03/28/24 00:18 03/28/24 01:57 03/28/24 02:29 Temperature 98.7 F Pulse Rate 88 78 70 Respiratory Rate 22 19 16 Blood Pressure 189/101 H 194/99 H 168/85 H Pulse Oximetry 99 98 100 Oxygen Delivery Method Room Air Room Air Room Air Medical Decision Making Lab Data Lab results reviewed: Yes I reviewed the patient's lab results. Labs: Lab Results 03/28/24 Range/Units 01:27 Urine RBC 0-1/hpf (0-5/HPF) Urine WBC None seen (0-5/HPF) Ur Squamous Epith Cells 0-1 /hpf (0-5/HPF) Urine Bacteria None seen (None) Ur Culture Indicated? Cult not indicated Vol Urine Centrifuged 10ml (spun) Urine Dip Bedside Urine Glucose Negative Bedside Urine Bilirubin - Negative Bedside Urine Ketone +/- 5 Urine Specific [place] 1.010 Bedside Urine Occult Blood +++ Bedside Urine pH 5.5 Bedside Urine Protein - Negative Bedside Urine Urobilinogen - Negative Bedside Urine Nitrite - Negative Bedside Urine Leukocytes - Negative Esterase Point of care testing: Urine Dip Bedside Urine Glucose Negative Bedside Urine Bilirubin - Negative Bedside Urine Ketone +/- 5 Urine Specific [place] 1.010 Bedside Urine Occult Blood +++ Bedside Urine pH 5.5 Bedside Urine Protein - Negative Bedside Urine Urobilinogen - Negative Bedside Urine Nitrite - Negative Bedside Urine Leukocytes - Negative Esterase Imaging Data CT scan - abdomen/pelvis: Radiologist's Impression: PROCEDURE: CT ABDOMEN PELVIS WO CON INDICATIONS: Generalized abdominal pain TECHNIQUE: Axial sections were acquired from the lung bases to the pubic symphysis. Coronal and sagittal reformats were performed. For radiation dose reduction, the following was used: automated exposure control, adjustment of mA and/or kV according to patient size. COMPARISON: [facility], CT, CT ABDOMEN PELVIS W CON, 03/02/2023, 6:12. FINDINGS: Image quality: Diagnostic Lower chest: Unremarkable lung bases. Mildly patulous distal esophagus with a small amount of fluid. Normal heart size. Trace pericardial thickening versus effusion. Liver: Solid organs are not well evaluated in the absence of intravenous contrast. The liver is unremarkable. Gallbladder and biliary system: Mildly distended. Nondilated biliary tree Pancreas: No ductal dilation Spleen: Nonenlarged Adrenals: No discrete nodules Kidneys: No contour deforming mass. No hydronephrosis. No calcified obstructing stone. Vessels and lymph nodes: No abdominal aortic aneurysm. There are no pathologic lymph nodes by size criteria. Bowel and peritoneum: No evidence of small bowel obstruction. There is mild distention of the proximal duodenum. No pathologic ascites. Overall fecal loading is [id number]. The appendix is nondilated Body wall: Unremarkable Pelvis: Bladder is unremarkable. Reproductive organs appear unremarkable on limited CT evaluation. Adnexal postsurgical changes. Possible uterine fibroids. Bones: No acute or suspicious osseous findings. There are degenerative changes. Trace L4 on L5 anterolisthesis again seen IMPRESSION: No acute small bowel obstruction. The proximal duodenum is mildly distended. Mildly patulous distal esophagus with a small amount of fluid. [id number] fecal loading. No acute abnormality on this limited noncontrast CT. Other incidental findings described above. MDM Narrative Medical decision making narrative: Urinalysis shows blood but no other signs of infection. We are unable to obtain an IV or get blood work from the patient secondary to being technically difficult. CT scan abdomen and pelvis without contrast shows [id number] stool burden however no other acute pathology. There was no surgical indication found on the exam today. She does not have right upper quadrant tenderness. Right lower quadrant tenderness. No signs of kidney stones. Patient does describe all this as a cramping and burning sensation. The plan will be is to give her Bentyl to try to help with the cramping. Try lactulose to try to with the stool burden which very well could be the cause of her symptoms. No indication emergent surgical consultation. Will discharge patient she expressed understanding and agreement. Discharge Plan Departure Patient Disposition: Home Clinical Impression: Abdominal pain Instructions: DI for Abdominal Pain-Adult Activity Restrictions/Additional Instructions: I do recommend that you continue to take all of your medication since as directed. I do recommend that you also consider taking either a stool softener or laxative over the next couple days and to your having normal regular soft bowel movements. A prescription for a medicine called dicyclomine/Bentyl was sent to the pharmacy of your choice. This is an as-needed medicine to try to help with the abdominal cramping. Be sure that you are staying hydrated. Return to the emergency department for new symptoms. Prescriptions: New dicyclomine 20 mg tablet 20 mg PO QID PRN (Reason: abdominal pain) Qty: 16 0RF No Action oxycodone 5 mg tablet 5 mg PO Q6H PRN (Reason: pain) Qty: 10 0RF hydroxyzine pamoate [Vistaril] 25 mg capsule 25 mg PO TID PRN (Reason: muscle spasm) Qty: 20 0RF oxycodone 10 mg tablet 10 mg PO QID PRN (Reason: pain) Qty: 20 0RF pantoprazole [Protonix] 40 mg tablet,delayed release (DR/EC) 40 mg PO DAILY Qty: 30 0RF ondansetron 4 mg tablet,disintegrating 4 mg PO TID-QID PRN (Reason: nausea and vomiting) Qty: 10 0RF Referrals: *Temp,ED* [Primary Care Provider] - Stand Alone Forms: Patient Portal/API
[2024-03-28] MEDS: HYDROMORPHONE 1 MG INJ IM (00:56)
--- NOTE | 2024-03-28 01:12 | DI.CT.S_ITS ---
PROCEDURE: CT ABDOMEN PELVIS WO CON INDICATIONS: Generalized abdominal pain TECHNIQUE: Axial sections were acquired from the lung bases to the pubic symphysis. Coronal and sagittal reformats were performed. For radiation dose reduction, the following was used: automated exposure control, adjustment of mA and/or kV according to patient size. COMPARISON: [facility], CT, CT ABDOMEN PELVIS W CON, 03/02/2023, 6:12. FINDINGS: Image quality: Diagnostic Lower chest: Unremarkable lung bases. Mildly patulous distal esophagus with a small amount of fluid. Normal heart size. Trace pericardial thickening versus effusion. Liver: Solid organs are not well evaluated in the absence of intravenous contrast. The liver is unremarkable. Gallbladder and biliary system: Mildly distended. Nondilated biliary tree Pancreas: No ductal dilation Spleen: Nonenlarged Adrenals: No discrete nodules Kidneys: No contour deforming mass. No hydronephrosis. No calcified obstructing stone. Vessels and lymph nodes: No abdominal aortic aneurysm. There are no pathologic lymph nodes by size criteria. Bowel and peritoneum: No evidence of small bowel obstruction. There is mild distention of the proximal duodenum. No pathologic ascites. Overall fecal loading is [id number]. The appendix is nondilated Body wall: Unremarkable Pelvis: Bladder is unremarkable. Reproductive organs appear unremarkable on limited CT evaluation. Adnexal postsurgical changes. Possible uterine fibroids. Bones: No acute or suspicious osseous findings. There are degenerative changes. Trace L4 on L5 anterolisthesis again seen IMPRESSION: No acute small bowel obstruction. The proximal duodenum is mildly distended. Mildly patulous distal esophagus with a small amount of fluid. [id number] fecal loading. No acute abnormality on this limited noncontrast CT. Other incidental findings described above. Dictated by: Navid Walsh M.D. on 03/28/2024 at 1:46 Approved by: Navid Walsh M.D. on 03/28/2024 at 1:51
--- NOTE | 2024-03-28 01:20 | PC.NURSE ---
Very difficult IV start. Multiple RN's attempted PIV placement without success. Dr Lord aware. Lab now at bedside attempting blood draw.
[2024-03-28 01:51] LABS: Bacteria Urine None Seen; Culture Indicated Urine Cult Not Indicated; RBC Urine 0-1/HPF (0-5/HPF); Squamous Epithelial Cell Urine 0-1 /HPF (0-5/HPF); Urine Volume 10mL (spun); WBC Urine None Seen (0-5/HPF)
[2024-03-28] MEDS: KETOROLAC 30 MG/ML VIAL IV (01:53)
[2024-03-28 01:57] VITALS: BP 194/99; PULSE 78; RESP 19; O2SAT 98
[2024-03-28] MEDS: DICYCLOMINE 10 MG CAPSULE 20 MG PO (02:18)
[2024-03-28] MEDS: LACTULOSE 20 GM/30 ML SOLUTION PO (02:18)
[2024-03-28] MEDS: ONDANSETRON 4 MG ODT PREPACK 1 BOTTLE MISC (02:22)
[2024-03-28 02:29] VITALS: BP 168/85; PULSE 70; RESP 16; O2SAT 100
== END 2024-03-28 02:32 | disposition home or self-care (01) ==
PROVIDERS: Emergency Provider Emergency Medicine
DX: R10.31 Right lower quadrant pain (principal)
CPT/HCPCS: 74176; 81003; 81015; 96372; 96374; 99283; 99284; J1170; J1885

== ENCOUNTER → 2024-04-21 17:24 | Outpatient (CLI) | payer OTHER, MEDICAID, SELFPAY ==
--- NOTE | 2024-04-21 17:29 | DI.RAD.S_ITS ---
PROCEDURE: XR KNEE RT 1TO2V INDICATIONS: R KNEE PAIN TECHNIQUE: 2 views of the knee were acquired. COMPARISON: [facility], MR, MR KNEE RT WO/W CON, 02/21/2024, 13:56. FINDINGS: Bones: No acute fractures or dislocations. Probable chondroid lesion in the central distal femoral metaphysis compatible with an enchondroma, as seen on MRI from 02/21/2024. Mild degenerative changes are seen most prominent at the medial femorotibial compartment. Soft tissues: Small joint effusion. No suspicious soft tissue calcifications. IMPRESSION: Small joint effusion. No acute bony abnormality. Approved by: Rikki Vu M.D. on 04/22/2024 at 21:48
== END ==
PROVIDERS: PCP Physician Assistant; Referring Provider Physician Assistant Medical; Visit Provider Physician Assistant Medical
DX: D16.21 Benign neoplasm of long bones of right lower limb (principal); M25.461 Effusion, right knee
CPT/HCPCS: 73560